=== PATIENT | female | born 1935 ===

== ENCOUNTER 2017-01-17 20:31 | Emergency (ER) | payer MEDICARE, OTHER ==
[2017-01-17 20:42] VITALS: BP 154/96
[2017-01-17 20:45] VITALS: BMI 23.0
--- NOTE | 2017-01-17 21:26 | ED PDOC ---
Arrival/HPI - General Historian: Patient, Other (daughter) - History of Present Illness Time/Duration: 4-6 hours Symptom Onset: Sudden Severity Level: 8 Activities at Onset: Light <Lila Larsen - Last Filed: 01/17/17 22:52> <Yasmin Suarez - Last Filed: 01/17/17 23:35> - General Chief Complaint: Trauma Time Seen by Provider: 01/17/17 20:52 - History of Present Illness Narrative History of Present Illness (Text): 01/17/17 21:25 81 yo F w h/o HTN, HLD, Parkinson's disease, hypothyroidism presents to ER, brought in by her daughter who is currently at bedside, s/p fall at home with L back and L knee trauma. Patient denies head trauma and LOC. Patient's daughter states the patient usually ambulates with a walker. The patient stood to grab a glass of water today by her bedside and "lost balance," striking her left mid back on a bureau and left knee on the ground. Patient admits to intermittent dizziness for months for which she is reportedly being worked up by her PMD. Patient admits to persistent left back and left knee pain. Denies CP, SOB, palpitations, abd pain, fevers, chills, n/v/d/c, rashes, edema. (Lila Larsen) Past Medical History - Provider Review Nursing Documentation Reviewed: Yes - Reproductive Menopause: Yes - Cardiac Hx Cardiac Disorders: Yes Hx Hypertension: Yes - Pulmonary Hx Respiratory Disorders: No Hx Sleep Apnea: Yes - Neurological Hx Neurological Disorder: Yes Hx Parkinson's Disease: Yes - HEENT Hx HEENT Disorder: No - Renal Hx Renal Disorder: No - Endocrine/Metabolic Hx Hypothyroidism: Yes - Hematological/Oncological Hx Blood Disorders: No Hx AIDS: No Hx Blood Transfusions: No Hx Blood Transfusion Reaction: No - Integumentary Hx Dermatological Disorder: No - Musculoskeletal/Rheumatological Hx Arthritis: Yes - Gastrointestinal Hx Gastrointestinal Disorders: Yes Hx Gastroesophageal Reflux: Yes (gastritis, esophageal hernia operation) - Genitourinary/Gynecological Hx Genitourinary Disorders: No - Psychiatric Hx Psychophysiologic Disorder: No Hx Substance Use: No - Surgical History Hx Section: Yes (x3) Hx Cholecystectomy: Yes Other/Comment: pacemaker. thyroid sx - Anesthesia Hx Anesthesia: Yes Hx Anesthesia Reactions: No Hx Malignant Hyperthermia: No <Lila Larsen - Last Filed: 01/17/17 22:52> Family/Social History - Physician Review Nursing Documentation Reviewed: Yes Family/Social History: Hypertension, CAD/RI Smoking Status: Former Smoker Hx Alcohol Use: No Hx Substance Use: No <Lila Larsen - Last Filed: 01/17/17 22:52> Allergies/Home Meds <Lila Larsen - Last Filed: 01/17/17 22:52> <Yasmin Suarez - Last Filed: 01/17/17 23:35> Allergies/Adverse Reactions: Allergies peanut Allergy (Verified 01/17/17 20:50) ITCHING zolpidem tartrate [From Ambien] Adverse Reaction (Verified 01/17/17 20:50) HALUCINATIONS PT DAUGHTER STATED THIS DURING INTERVEIW FOR ENDO coffee Allergy (Uncoded 01/17/17 20:50) ITCHING lettuce Allergy (Uncoded 01/17/17 20:50) ITCHING Home Medications: Home Meds Medication Instructions Recorded Confirmed Carbidopa/Levodopa [Sinemet 1 tab PO DAILY 06/06/16 11/15/16 10] Levothyroxine [Synthroid] 0 mcg PO DAILY 06/06/16 11/15/16 Loperamide HCl [Loperamide] 2 mg PO DAILY 06/06/16 11/15/16 Metoprolol Succinate [Toprol XL] 25 mg PO DAILY 06/06/16 11/15/16 Benzonatate [Tessalon Perle] 100 mg PO DAILY 11/15/16 11/15/16 Cholecalciferol (Vitamin D3) 2,000 units PO DAILY 11/15/16 11/15/16 [Vitamin D3] Levocetirizine Dihydrochloride 5 mg PO DAILY 11/15/16 11/15/16 [Xyzal] Pantoprazole [Protonix EC Tab] 40 mg PO DAILY 11/15/16 11/15/16 Rivaroxaban [Xarelto] 20 mg PO DAILY 11/15/16 11/15/16 Sucralfate [Carafate] 2 tsp PO DAILY 11/15/16 11/15/16 Review of Systems - Physician Review All systems were reviewed & negative as marked: Yes - Review of Systems Constitutional: absent: Fatigue, Fevers Eyes: absent: Vision Changes Respiratory: absent: SOB, Cough Cardiovascular: absent: Chest Pain, Palpitations, Edema, Calf Pain, VARGAS Gastrointestinal: absent: Abdominal Pain, Diarrhea, Nausea, Vomiting Genitourinary Female: absent: Dysuria, Frequency Musculoskeletal: Arthralgias (left knee), Back Pain (left midback) Skin: absent: Rash, Skin Lesions Neurological: Dizziness (intermittent). absent: Headache Endocrine: absent: Polyuria, Polydipsia Hemo/Lymphatic: absent: Easy Bleeding, Easy Bruising Psychiatric: absent: Anxiety, Depression <Lila Larsen - Last Filed: 01/17/17 22:52> Physical Exam Vital Signs Reviewed: Yes Temperature: Afebrile Blood Pressure: Hypertensive Pulse: Regular Respiratory Rate: Normal Appearance: Positive for: Non-Toxic, Uncomfortable Pain Distress: Mild Mental Status: Positive for: Alert and Oriented X 3 - Systems Exam Head: Present: Atraumatic, Normocephalic Pupils: Present: PERRL Extroacular Muscles: Present: EOMI Conjunctiva: Present: Normal Mouth: Present: Dry (slightly) Nose (External): Present: Atraumatic Nose (Internal): Present: Normal Inspection Neck: Present: Normal Range of Motion. No: Meningeal Signs, JVD Respiratory/Chest: Present: Clear to Auscultation, Good Air Exchange. No: Respiratory Distress, Accessory Muscle Use Cardiovascular: Present: Regular Rate and Rhythm, Normal S1, S2 Abdomen: Present: Normal Bowel Sounds. No: Tenderness, Distention, Peritoneal Signs Back: Present: Other (small left midback abrasion, TTP around the area). No: Midline Tenderness, Paraspinal Tenderness Upper Extremity: Present: Normal Inspection. No: Cyanosis, Edema Lower Extremity: Present: Normal Inspection, Tenderness (L knee, very small abrasion, no open wounds, mild TTP). No: Edema, CALF TENDERNESS Neurological: Present: GCS=15, CN II-XII Intact, Speech Normal Skin: Present: Warm, Dry Psychiatric: Present: Alert, Oriented x 3 <Lila Larsen - Last Filed: 01/17/17 22:52> Medical Decision Making <Lila Larsen - Last Filed: 01/17/17 22:52> <Yasmin Suarez - Last Filed: 01/17/17 23:35> ED Course and Treatment: 01/17/17 21:41 81 yo F w h/o HTN, HLD, Parkinson's disease s/p fall at home. CT thoracic spine , CT head, left rib series, L knee. (Lila Larsen) Patient seen and examined with resident. Repeat exam with no tenderness of the knee or swelling with FROM present. Came up with treatment and disposition plan with resident. 01/17/17 23:[address]: IMPRESSION: 1. No intracranial hemorrhage. 2. Nonspecific white matter changes. 3. Incidental/non-acute findings are described above. Thoracic Spine CT: FINDINGS: Vertebrae: No acute fracture. Mild wedging of lower thoracic vertebral bodies, chronic. Discs/spinal canal/neural foramina: Mild degenerative changes of spine. No significant spinal canal stenosis. Other bones/joints: Several chronic LEFT rib deformities. Soft tissues: Unremarkable. Lungs: Mild dependent atelectasis. Probable mild peripheral scarring within upper lobes, LEFT greater than RIGHT. Pleural space: Mild posterior pleural thickening. Mediastinum: Partial fluid distention of esophagus. Moderate-sized hiatal hernia. Gallbladder and bile ducts: Cholecystectomy. Kidneys and ureters: RIGHT renal cyst. Small calculus within LEFT kidney. Stomach and bowel: Colonic diverticula. Tubes, lines and devices: LEFT pacemaker. IMPRESSION: 1. No fracture. 2. Incidental/non-acute findings are described above. 01/17/17 23:30 XR: L 6th rib fx. 01/17/17 23:30 Patient reports improvement in pain. CT brain and t-spine with no acute findings. XR shows L rib fx. The fall was due to her chronic unsteadiness but no acute near syncopal concerns. Given condition and concern for falls, will avoid heavier narcotic medications and will d/c on tramadol and incentive spirometer to f/u pmd. (Yasmin Suarez) - RAD Interpretation Radiology Orders: 01/17/17 21:22 HEAD W/O CONTRAST [CT] Stat THORACIC SPINE W/O CONT [CT] Stat KNEE WITH PATELLA LEFT 3 VIEW [RAD] Stat 01/17/17 21:23 RIBS LEFT & PA CHEST [RAD] Stat - Medication Orders Current Medication Orders: Discontinued Medications Oxycodone/Acetaminophen (Percocet 5/325 Mg Tab) 1 tab PO STAT STA Stop: 01/17/17 21:47 Last Admin: 01/17/17 22:00 Dose: 1 tab Disposition/Present on Arrival - Present on Arrival Any Indicators Present on Arrival: No History of DVT/PE: No History of Uncontrolled Diabetes: No Urinary Catheter: No History of Decub. Ulcer: No History Surgical Site Infection Following: None - Disposition Have Diagnosis and Disposition been Completed?: Yes Disposition Time: 22:49 Patient Plan: Discharge <Lila Larsen - Last Filed: 01/17/17 22:52> - Present on Arrival Any Indicators Present on Arrival: No - Disposition Have Diagnosis and Disposition been Completed?: Yes Patient Plan: Discharge <Yasmin Suarez - Last Filed: 01/17/17 23:35> - Disposition Diagnosis: Rib fracture, Fall Disposition: HOME/ ROUTINE Patient Problems: Current Active Problems Problem Status Onset Fall Acute Rib fracture Acute Condition: GOOD Discharge Instructions (ExitCare): Rib Fracture (ED) Print Language: LAO Additional Instructions: Use the incentive spirometer as directed. Take the ultracet for pain as prescribed. Please followup with your primary care physician within 1-2 days. Return to the emergency department if any new concerning symptoms. Prescriptions: traMADol/Acetaminophen [Ultracet 325 MG-37.5 MG] 1 tab PO Q8H PRN #20 tab PRN Reason: Pain, Severe (8-10) Referrals: Amara Gaspar MD [Primary Care Provider] - Follow up with primary
[2017-01-17] MEDS ORDERED: Oxycodone/Acetaminophen 5/325 mg Tab PO STA (21:46)
--- NOTE | 2017-01-17 22:50 | CT ---
EXAM: CT Head Without Intravenous Contrast CLINICAL HISTORY: 81 years old, female; Injury or trauma; Fall; Initial encounter; Concussion / head injury TECHNIQUE: Axial computed tomography images of the head/brain without intravenous contrast. This CT exam was performed using one or more of the following dose reduction techniques: automated exposure control, adjustment of the mA and/or kV according to patient size, and/or use of iterative reconstruction technique. COMPARISON: No relevant prior studies available. FINDINGS: Brain: Moderate atrophy. No intracranial hemorrhage. No mass. Few scattered foci of decreased attenuation within periventricular/subcortical white matter. No edema. Ventricles: No hydrocephalus. Bones/joints: No acute fracture. Soft tissues: Unremarkable. Vasculature: Mild atherosclerotic disease of intracranial arteries. Sinuses: No acute sinusitis. Mastoid air cells: No mastoid effusion. Orbits: Unremarkable as visualized. IMPRESSION: 1. No intracranial hemorrhage. 2. Nonspecific white matter changes. 3. Incidental/non-acute findings are described above.
--- NOTE | 2017-01-17 22:58 | CT ---
EXAM: CT Thoracic Spine Without Intravenous Contrast CLINICAL HISTORY: 81 years old, female; Pain; Pain in thoracic spine; Additional info: Trauma TECHNIQUE: Axial computed tomography images of the thoracic spine without intravenous contrast. This CT exam was performed using one or more of the following dose reduction techniques: automated exposure control, adjustment of the mA and/or kV according to patient size, and/or use of iterative reconstruction technique. Coronal and sagittal reformatted images were created and reviewed. COMPARISON: No relevant prior studies available. FINDINGS: Vertebrae: No acute fracture. Mild wedging of lower thoracic vertebral bodies, chronic. Discs/spinal canal/neural foramina: Mild degenerative changes of spine. No significant spinal canal stenosis. Other bones/joints: Several chronic LEFT rib deformities. Soft tissues: Unremarkable. Lungs: Mild dependent atelectasis. Probable mild peripheral scarring within upper lobes, LEFT greater than RIGHT. Pleural space: Mild posterior pleural thickening. Mediastinum: Partial fluid distention of esophagus. Moderate-sized hiatal hernia. Gallbladder and bile ducts: Cholecystectomy. Kidneys and ureters: RIGHT renal cyst. Small calculus within LEFT kidney. Stomach and bowel: Colonic diverticula. Tubes, lines and devices: LEFT pacemaker. IMPRESSION: 1. No fracture. 2. Incidental/non-acute findings are described above.
[2017-01-18 00:12] VITALS: PULSE 90; RESP 16; TEMP 98.9; O2SAT 98
--- NOTE | 2017-01-18 07:31 | RAD ---
PROCEDURE: Radiographs of the Chest and Left Ribs. HISTORY: trauma COMPARISON: 01/03/2017. Chest x-ray TECHNIQUE: Frontal radiograph of the chest and multiple oblique radiographs of the left ribs were obtained. FINDINGS: LEFT RIBS: A post anterior left 6th rib fracture with minimal deformity - appears grossly subacute an another left apparently 8 rib lateral fracture is noted nondisplaced this may be subacute to chronic a pathological fracture here is not excluded. Visualization of the left normal spaced 7th rib is not seen. There is apparent osseous bridging developmental variant between this left 7th and 8th rib on the oblique view LUNGS: Clear. PLEURA: No pneumothorax or pleural fluid. CARDIOVASCULAR: Mild cardiomegaly - left ventricular enlargement apparent -no significant change. Dual lead pacemaker device in place Pulmonary vasculature appears within normal limits given the right shallow lung volumes OTHER FINDINGS: Right upper quadrant cholecystectomy clips IMPRESSION: Left rib fractures nondisplaced as detailed above. No pneumothorax
== END 2017-01-18 00:13 | disposition home or self-care (01) ==
LOC: ED 20:31
DX: S22.32XA Fracture of one rib, left side, initial encounter for closed fracture (principal); W18.39XA Other fall on same level, initial encounter; Y92.003 Bedroom of unspecified non-institutional (private) residence as the place of occurrence of the external cause; I10 Essential (primary) hypertension; G20 Parkinson's disease; Z87.891 Personal history of nicotine dependence

== ENCOUNTER 2018-04-30 14:07 | Emergency (ER) | payer MEDICARE, OTHER ==
[2018-04-30 14:56] VITALS: RESP 18; BMI 24.4
[2018-04-30] MEDS ORDERED: Sodium Chloride 0.9% 500 ML IV STA (15:25)
--- NOTE | 2018-04-30 15:47 | RAD ---
Date of service: 04/30/2018 HISTORY: dizziness COMPARISON: 12/19/2017. FINDINGS: LUNGS: The lungs are well inflated and clear. PLEURA: No significant pleural effusion identified, no pneumothorax apparent. CARDIOVASCULAR: The heart is normal in size. There is stable position of left-sided permanent pacing device. OSSEOUS STRUCTURES: There is stable deformity in the left sunshine thorax with old fracture deformities in the ribs. VISUALIZED UPPER ABDOMEN: Normal. OTHER FINDINGS: None. IMPRESSION: No active pulmonary disease.
--- NOTE | 2018-04-30 16:23 | CT ---
Date of service: 04/30/2018 PROCEDURE: CT HEAD WITHOUT CONTRAST. HISTORY: Dizziness COMPARISON: 01/17/2017. TECHNIQUE: Axial computed tomography images were obtained through the head/brain without intravenous contrast. Radiation dose: Total exam DLP = 828.09 mGy-cm. This CT exam was performed using one or more of the following dose reduction techniques: Automated exposure control, adjustment of the mA and/or kV according to patient size, and/or use of iterative reconstruction technique. FINDINGS: HEMORRHAGE: No intracranial hemorrhage. BRAIN: There are mild chronic microangiopathic changes. There is no mass, mass effect or abnormal extra-axial fluid collection. There is no territorial infarction. VENTRICLES: There is moderate age-related global parenchymal volume loss and proportionate enlargement of the ventricles and cortical sulci. CALVARIUM: The skull base and calvarium are normal. PARANASAL SINUSES: Predominantly clear. MASTOID AIR CELLS: Predominantly clear. OTHER FINDINGS: None. IMPRESSION: No acute intracranial abnormality. Mild chronic microangiopathic changes and moderate age-related global parenchymal volume loss.
--- NOTE | 2018-04-30 16:48 | ED PDOC ---
Arrival/HPI - General Chief Complaint: Dizziness/Lightheaded Time Seen by Provider: 04/30/18 14:53 Historian: Patient - History of Present Illness Narrative History of Present Illness (Text): 04/30/18 16:43 82 year old female, whose past medical history includes afib on Xeralto, CKD, sleep apnea, pacemaker, anemia and hypertension, who presents to the Emergency Department complaining of dizziness described as vertigo worse with head movement, decreased appetite, and general weakness x 1 week. Patient notes a near syncopal episode 3 days ago. Family believes it could be due to high blood pressure. Patient visited PMD on 4 days ago, bloodwork results were normal. Patient denies any fever, chills, chest pain, shortness of breath, nausea, vomiting, diarrhea, urinary symptoms, back pain, neck pain, headache, or any other complaints. Of note, as per daughter the patient has been taking tylenol PM 2 tabs BID for her joint pain for the past several days. pmd: [employer] Hand: Olga Cardio: [place] Time/Duration: 1 week Symptom Onset: Gradual Symptom Course: Unchanged Activities at Onset: Light Context: Home Past Medical History - Provider Review Nursing Documentation Reviewed: Yes - Infectious Disease Hx of Infectious Diseases: None - Cardiac Hx Cardiac Disorders: Yes Hx Atrial Fibrillation: Yes Hx Pacemaker: Yes - Pulmonary Hx Respiratory Disorders: Yes Hx Sleep Apnea: Yes - Neurological Hx Neurological Disorder: Yes Hx Parkinson's Disease: Yes - HEENT Hx HEENT Disorder: No - Renal Hx Renal Disorder: No - Endocrine/Metabolic Hx Endocrine Disorders: Yes Hx Hyperthyroidism: Yes - Hematological/Oncological Hx Blood Disorders: Yes Hx Anemia: Yes - Integumentary Hx Dermatological Disorder: No - Musculoskeletal/Rheumatological Hx Musculoskeletal Disorders: No - Gastrointestinal Hx Gastrointestinal Disorders: Yes - Genitourinary/Gynecological Hx Genitourinary Disorders: No - Psychiatric Hx Psychophysiologic Disorder: No Hx Substance Use: No - Surgical History Other/Comment: pacemaker. thyroid sx - Anesthesia Hx Anesthesia Reactions: No Family/Social History - Physician Review Nursing Documentation Reviewed: Yes Family/Social History: Unknown Family HX Smoking Status: Former Smoker Hx Alcohol Use: No Hx Substance Use: No Allergies/Home Meds Allergies/Adverse Reactions: Allergies peanut Allergy (Verified 04/30/18 14:51) ITCHING zolpidem [From Ambien] Allergy (Verified 04/30/18 14:51) DIZZINESS zolpidem tartrate [From Ambien] Adverse Reaction (Verified 04/30/18 14:51) HALUCINATIONS PT DAUGHTER STATED THIS DURING INTERVEIW FOR ENDO coffee Allergy (Uncoded 04/30/18 14:51) ITCHING lettuce Allergy (Uncoded 04/30/18 14:51) ITCHING Home Medications: Home Meds Medication Instructions Recorded Confirmed Loperamide HCl [Loperamide] 2 mg PO DAILY 06/06/16 04/30/18 Metoprolol Succinate XL [Toprol XL] 25 mg PO DAILY 06/06/16 04/30/18 Cholecalciferol (Vitamin D3) 2,000 units PO DAILY 11/15/16 04/30/18 [Vitamin D3] Pantoprazole [Protonix EC Tab] 40 mg PO DAILY 11/15/16 04/30/18 Levothyroxine [Synthroid] 75 mcg PO DAILY 12/19/17 04/30/18 ALPRAZolam [Xanax] 0.25 mg PO HS 04/30/18 04/30/18 Carbidopa/Levodopa 10 - 100 mg PO BID 04/30/18 04/30/18 [Carbidopa-Levodopa 10-100 Tab] Rivaroxaban [Xarelto] 20 mg PO DAILY 04/30/18 04/30/18 Review of Systems - Physician Review All systems were reviewed & negative as marked: Yes - Review of Systems Constitutional: Fatigue Eyes: Normal ENT: Normal Respiratory: Normal. absent: SOB, Cough Cardiovascular: Normal. absent: Chest Pain Gastrointestinal: Normal. absent: Abdominal Pain, Diarrhea, Nausea Genitourinary Female: Normal. absent: Dysuria, Frequency Musculoskeletal: Normal. absent: Back Pain, Neck Pain Skin: Normal. absent: Rash Neurological: Dizziness Endocrine: Normal Hemo/Lymphatic: Normal Psychiatric: Normal Physical Exam Vital Signs Reviewed: Yes Vital Signs Temp Pulse Resp BP Pulse Ox 04/30/18 16:41 60 18 128/71 98 04/30/18 14:51 97.8 F 68 18 118/63 99 Temperature: Afebrile Blood Pressure: Normal Pulse: Regular Respiratory Rate: Normal Appearance: Positive for: Well-Appearing, Non-Toxic, Comfortable Pain Distress: None Mental Status: Positive for: Alert and Oriented X 3 - Systems Exam Head: Present: Atraumatic, Normocephalic Pupils: Present: PERRL Extroacular Muscles: Present: EOMI, Other (horizontal nystagmus) Conjunctiva: Present: Normal Mouth: Present: Dry Neck: Present: Normal Range of Motion Respiratory/Chest: Present: Clear to Auscultation, Good Air Exchange. No: Respiratory Distress, Accessory Muscle Use Cardiovascular: Present: Regular Rate and Rhythm, Normal S1, S2. No: Murmurs Abdomen: No: Tenderness, Distention, Peritoneal Signs Back: Present: Normal Inspection Upper Extremity: Present: Normal Inspection. No: Cyanosis, Edema Lower Extremity: Present: Normal Inspection. No: Edema Neurological: Present: GCS=15, CN II-XII Intact, Speech Normal. No: Gait Normal (Gait unsteady) Skin: Present: Warm, Dry, Normal Color. No: Rashes Psychiatric: Present: Alert, Oriented x 3, Normal Insight, Normal Concentration Medical Decision Making ED Course and Treatment: 04/30/18 16:52 Impression: 82 year old female presents to the Emergency Department complaining of dizziness and general weakness x 1 week. Plan: -- EKG -- Labs -- Cardiac Enzymes -- Antivert -- Urine Culture -- UA -- CT Chest -- CXR -- Reassess and disposition Progress Notes: 04/30/18 17:17 CT head : IMPRESSION: No acute intracranial abnormality. Mild chronic microangiopathic changes and moderate age-related global parenchymal volume loss. CXR : IMPRESSION: No active pulmonary disease. EKG : electronic atrial pacemaker at 60 bpm, +LAD, no acute ST changes, as read by PA. Lab results reviewed : H/H wnl, Na 128 (appears chronic and not new Na 127-132), trop (-). Urine still pending. 04/30/18 17:54 VS : P 60 BP 128/71 98%RA On re-evaluation, patient reports improvement of symptoms, denies any dizziness at this time, only generalized weakness. On exam, patient remains AAOx3, in no acute distress. Repeat neuro exam shows no focal findings. Patient able to get up and out of bed and ambulate to the bathroom with minimal assistance, her gait is steady. Diagnostic results d/w the patient in great detail. Diagnosis of vertigo, hyponatremia, and UTI d/w the patient. Based on history, exam and diagnostic results, plan will be for outpatient follow up. Patient instructed to follow-up with pmd in 1-2 days without fail. Advised to take medication as prescribed. Return to the emergency room at any time for any new or worsening symptoms. Patient states she fully agrees with and understands discharge instructions. States that she agrees with the plan and disposition. Verbalized and repeated discharge instructions and plan. I have given the patient opportunity to ask any additional questions. - Lab Interpretations Lab Results: 04/30/18 16:37 04/30/18 16:37 Lab Results 04/30/18 18:01: Urine Color Yellow, Urine Appearance Sl cloudy, Urine pH 7.5, Ur Specific [place] 1.010, Urine Protein Negative, Urine Glucose (UA) Negative, Urine Ketones Negative, Urine Blood Trace-lysed H, Urine Nitrate Negative, Urine Bilirubin Negative, Urine Urobilinogen 0.2, Ur Leukocyte Esterase Small H , Urine RBC 2 - 5, Urine WBC 1 - 3, Ur Epithelial Cells 0 - 2 04/30/18 16:37: Sodium 128 L, Potassium 4.7, Chloride 93 L, Carbon Dioxide 25, Anion Gap 15, BUN 17, Creatinine 1.1, Est GFR ( Amer) 57, Est GFR (Non- Af Amer) 47, Random Glucose 114 H, Calcium 8.0 L, Magnesium 1.7, Total Bilirubin 0.5, AST 32, ALT 50, Alkaline Phosphatase 76, Lactate Dehydrogenase 509, Total Creatine Kinase 43, Troponin I < 0.01 D, Total Protein 6.9, Albumin 4.0, Globulin 2.9, Albumin/Globulin Ratio 1.4 04/30/18 16:37: WBC 6.5, RBC 3.95, Hgb 12.7, Hct 36.5, MCV 92.4 D, MCH 32.2, MCHC 34.8, RDW 14.5, Plt Count 195, MPV 9.6, Gran % 71.7 H, Lymph % (Auto) 21.4 L, [place] % (Auto) 5.9, Eos % (Auto) 0.8 L, Baso % (Auto) 0.2, Gran # 4.63, Lymph # (Auto) 1.4, [place] # (Auto) 0.4, Eos # (Auto) 0.1, Baso # (Auto) 0.01 - RAD Interpretation Radiology Orders: 04/30/18 15:21 CHEST PORTABLE [RAD] Stat 04/30/18 15:24 HEAD W/O CONTRAST [CT] Stat - Medication Orders Current Medication Orders: Discontinued Medications Sodium Chloride (Sodium Chloride 0.9%) 500 mls @ 500 mls/hr IV .Q1H STA Stop: 04/30/18 16:24 Last Admin: 04/30/18 16:40 Dose: 500 mls/hr eMAR Start Stop Document 04/30/18 16:40 HI (Rec: 04/30/18 16:40 [place] [id number]) Intravenous Solution Start Date 04/30/18 Start Time 16:40 Ceftriaxone Sodium (Rocephin 1 Gram Ivpb) 1 gm in 100 mls @ 200 mls/hr IVPB STAT STA PRN Reason: Protocol Stop: 04/30/18 19:02 Last Admin: 04/30/18 19:06 Dose: 200 mls/hr eMAR Start Stop Document 04/30/18 19:06 HI (Rec: 04/30/18 19:06 [id number] Intravenous Solution Start Date 04/30/18 Start Time 19:06 Meclizine HCl (Antivert) 25 mg PO STAT STA Stop: 04/30/18 15:25 Last Admin: 04/30/18 16:40 Dose: 25 mg Ondansetron HCl (Zofran Inj) 4 mg IVP STAT STA Stop: 04/30/18 15:25 Last Admin: 04/30/18 16:40 Dose: 4 mg IVP Administration Document 04/30/18 16:40 [place] (Rec: 04/30/18 16:40 [id number] Charges for Administration # of IVP Administrations 1 - PA / GRANULIZING MACHINE OPERATOR / Resident Statement MD/DO has reviewed & agrees with the documentation as recorded. - Scribe Statement The provider has reviewed the documentation as recorded by the Scribe Usha Velasco All medical record entries made by the Scribe were at my direction and personally dictated by me. I have reviewed the chart and agree that the record accurately reflects my personal performance of the history, physical exam, medical decision making, and the department course for this patient. I have also personally directed, reviewed, and agree with the discharge instructions and disposition. Disposition/Present on Arrival - Present on Arrival Any Indicators Present on Arrival: No History of DVT/PE: No History of Uncontrolled Diabetes: No Urinary Catheter: No History of Decub. Ulcer: No History Surgical Site Infection Following: None - Disposition Have Diagnosis and Disposition been Completed?: Yes Diagnosis: Vertigo, UTI (urinary tract infection), Hyponatremia Disposition: HOME/ ROUTINE Disposition Time: 19:00 Patient Plan: Discharge Patient Problems: Current Active Problems Problem Status Onset Hyponatremia Acute UTI (urinary tract infection) Acute Vertigo Acute Condition: STABLE Discharge Instructions (ExitCare): Vertigo (a Type of Dizziness), Urinary Tract Infections in Adults, Hyponatremia (DC) Additional Instructions: Thank you for letting us take care of you today. You were treated for vertigo, UTI, hyponatremia. The emergency medical care you received today was directed at your acute symptoms. If you were prescribed any medication, please fill it and take as directed. It may take several days for your symptoms to resolve. Return to the Emergency Department if your symptoms worsen, do not improve, or if you have any other problems. Please contact your doctor in 2 days for re-evaluation and follow up. Bring any paperwork you were given at discharge with you along with any medications you are taking to your follow up visit. Our treatment cannot replace ongoing medical care by a primary care provider (PCP) outside of the emergency department. Thank you for allowing the [facility] team to be part of your care today. If you had an X-Ray or CT scan: A Radiologist will review the ED reading if any change in treatment is needed we will contact you. If you had a urine culture: It will take several days for the results, if any change in treatment is needed we will contact you. Prescriptions: Cephalexin [Keflex] 500 mg PO TID #21 capsule Meclizine [Meclizine*] 25 mg PO Q6 PRN #20 tab PRN Reason: Dizziness Ondansetron ODT [Zofran ODT] 4 mg PO DAILY PRN #20 odt PRN Reason: Nausea/Vomiting Referrals: Amara Gaspar MD [Primary Care Provider] - Follow up with primary Forms: [employer] ([place])
[2018-04-30 16:55] LABS: BASO # 0.01 K/mm3 (0.0-2.0); BASO % 0.2 % (0.0-3.0); EOS # 0.1 (0.0-0.7); EOS % 0.8 % (1.5-5.0); GRAN # 4.63 (1.4-6.5); GRAN % 71.7 % (50.0-68.0); HEMOGLOBIN 12.7 g/dL (12.0-16.0); LYMPH # 1.4 (1.2-3.4); LYMPH % 21.4 % (22.0-35.0); MEAN CELL VOLUME 92.4 fl (80.0-105.0); MEAN CORPUSCULAR HEMOGLOBIN 32.2 pg (25.0-35.0); MEAN CORPUSCULAR HGB CONC 34.8 g/dl (31.0-37.0); MEAN PLATELET VOLUME 9.6 fl (7.0-11.0); MONO # 0.4 (0.1-0.6); MONO % 5.9 % (1.0-6.0); RBC 3.95 10^6/uL (3.5-6.1); RED CELL DISTRIBUTION WIDTH 14.5 % (11.5-14.5); WHITE BLOOD COUNT 6.5 10^3/ul (4.5-11.0)
[2018-04-30 17:04] LABS: ALB/GLOB RATIO 1.4 (1.1-1.8); ALT/SGPT 50 U/L (7-56); AST/SGOT 32 U/L (14-36); BLOOD UREA NITROGEN 17 mg/dL (7-21); GFR AFRICAN-AMERICAN 57; GFR NON-AFRICAN AMERICAN 47
[2018-04-30 17:14] LABS: TROPONIN I < 0.01 ng/mL
[2018-04-30 18:15] LABS: PH,URINE 7.5 (4.7-8.0); URINE BILIRUBIN NEGATIVE (NEGATIVE); URINE BLOOD TRACE-LYSED (NEGATIVE); URINE GLUCOSE (UA) NEGATIVE (NEGATIVE); URINE LEUKOCYTE ESTERASE SMALL Leu/uL (NEGATIVE); URINE PROTEIN NEGATIVE mg/dL (<30 mg/dL); URINE UROBILINOGEN 0.2 E.U./dL (<1 E.U./dL)
[2018-04-30 18:17] LABS: URINE APPEARANCE SL CLOUDY (CLEAR); URINE COLOR YELLOW (YELLOW)
[2018-04-30 18:19] LABS: URINE EPITHELIAL CELLS 0 - 2 /hpf (0-5)
[2018-04-30] MEDS ORDERED: cefTRIAXone 1,000 MG in PED IV SYRINGE 1 SYR IVPB STA (18:31)
[2018-04-30] MEDS ORDERED: cefTRIAXone 1 gm 1 GM/100 ML BAG IVPB STA (18:33)
[2018-04-30 20:09] VITALS: BP 141/91; PULSE 70; TEMP 97.9; O2SAT 100
--- NOTE | 2018-04-30 22:30 | CARD ---
APPROVED REPORT Date of service: 04/30/2018 EKG Measurement Heart [id number] <Conclusion> Poor data quality, interpretation may be adversely affected Electronic atrial pacemaker Left axis deviation Septal infarct, age undetermined Possible Lateral infarct, age undetermined Abnormal ECG
== END 2018-04-30 20:08 | disposition home or self-care (01) ==
LOC: ED 14:07
DX: R42 Dizziness and giddiness (principal); E87.1 Hypo-osmolality and hyponatremia; N39.0 Urinary tract infection, site not specified; I48.91 Unspecified atrial fibrillation; I12.9 Hypertensive chronic kidney disease with stage 1 through stage 4 chronic kidney disease, or unspecified chronic kidney disease; N18.9 Chronic kidney disease, unspecified; G20 Parkinson's disease; Z87.891 Personal history of nicotine dependence
CPT/HCPCS: 70450; 71045; 80053; 81001; 82550; 83615; 83735; 84484; 85025; 87086; 93005; 96374; 99285; J0696; J2405; J7030

== ENCOUNTER 2018-08-02 14:24 | Emergency (ER) | payer MEDICARE, OTHER ==
[2018-08-02 14:24] VITALS: BMI 23.0
--- NOTE | 2018-08-02 16:07 | ED PDOC ---
Arrival/HPI <Salbador Brooks - Last Filed: 08/02/18 20:00> - General Historian: Patient, Family (taylor, daughter) - History of Present Illness Narrative History of Present Illness (Text): This is an 83 year old mohawk speaking female with PMH of esophageal stricture, Afib, DVT, CKD, sleep apnea, CHF with PM, hypertension, arthritis who presents with multiple complaints. Pt's daughter, taylor, helped translate. Pt is a poor historian. She is complaining of left sided hip pain for the past 3 days, with is worse with walking better with rest and nonradiating. Pt is also complaining of chronic diffuse abdominal discomfort worsened over the past 3 days, associated with nausea and vomiting. Pt states that she is able to eat and drink at times, and that the vomitus only contains food material without blood or bile. Pt also reports increased urinary frequency for the past 8 days with urgency. No dysuria, hematuria, vaginal complaints. Pt denies fever, chills, so b, diarrhea, hematochezia, melena, dizziness, focal weakness, blurry vision. Denies recent travel, car rides longer than 4 hours, airplane rides. Last bowel movement was 2 days ago, normal. Pt is passing gas. PMD: Christal Gaspar (last seen 6 months ago) Cardiology: Efrain Rudolph (last seen 1 week ago for chest discomfort, and was scheduled for a stress test today) GI: Fallon (last seen 8 months ago) Nephro: Hajal PMH: esophageal stricture, Afib, DVT, CKD, sleep apnea, CHF with PM, hypertensi on, arthritis PSH: PM 2 years ago, thyroid surgery, abdominal hernia surgery, cholecystectomy Meds: see MAR Allx: see MAR Social hx: Lives with in [place]. Denies etoh, former smoker, denies d rug use. Time/Duration: < week Symptom Onset: Gradual Symptom Course: Worsening Quality: Other (abdominal discomfort) Associated Symptoms (Text): 08/02/18 20:19 nausea and vomiting <Chino Quintero - Last Filed: 08/02/18 20:19> - General Chief Complaint: GI Problem Time Seen by Provider: 08/02/18 14:51 Past Medical History - Provider Review Nursing Documentation Reviewed: Yes - Infectious Disease Hx of Infectious Diseases: None - Cardiac Hx Cardiac Disorders: Yes Hx Atrial Fibrillation: Yes Hx Pacemaker: Yes - Pulmonary Hx Respiratory Disorders: No - Neurological Hx Neurological Disorder: Yes Hx Parkinson's Disease: Yes - HEENT Hx HEENT Disorder: No - Renal Hx Renal Disorder: No - Endocrine/Metabolic Hx Endocrine Disorders: Yes Hx Hyperthyroidism: Yes - Hematological/Oncological Hx Blood Disorders: No - Integumentary Hx Dermatological Disorder: No - Musculoskeletal/Rheumatological Hx Musculoskeletal Disorders: Yes - Gastrointestinal Hx Gastrointestinal Disorders: Yes - Genitourinary/Gynecological Hx Genitourinary Disorders: No - Psychiatric Hx Psychophysiologic Disorder: No Hx Substance Use: No - Surgical History Other/Comment: pacemaker. thyroid sx - Anesthesia Hx Anesthesia Reactions: No <Chino Quintero - Last Filed: 08/02/18 20:19> Family/Social History - Physician Review Nursing Documentation Reviewed: Yes Family/Social History: Unknown Family HX Smoking Status: Former Smoker Hx Alcohol Use: No Hx Substance Use: No <Chino Quintero - Last Filed: 08/02/18 20:19> Allergies/Home Meds <Salbador Brooks - Last Filed: 08/02/18 20:00> <Chino Quintero - Last Filed: 08/02/18 20:19> Allergies/Adverse Reactions: Allergies peanut Allergy (Verified 08/02/18 14:31) ITCHING zolpidem [From Ambien] Allergy (Verified 08/02/18 14:31) DIZZINESS zolpidem tartrate [From Ambien] Adverse Reaction (Verified 08/02/18 14:31) HALUCINATIONS PT DAUGHTER STATED THIS DURING INTERVEIW FOR ENDO coffee Allergy (Uncoded 08/02/18 14:31) ITCHING lettuce Allergy (Uncoded 08/02/18 14:31) ITCHING Home Medications: Home Meds Medication Instructions Recorded Confirmed Loperamide HCl [Loperamide] 2 mg PO DAILY 06/06/16 08/02/18 Metoprolol Succinate XL [Toprol XL] 25 mg PO DAILY 06/06/16 08/02/18 Cholecalciferol (Vitamin D3) 2,000 units PO DAILY 11/15/16 08/02/18 [Vitamin D3] Pantoprazole [Protonix EC Tab] 40 mg PO DAILY 11/15/16 08/02/18 Levothyroxine [Synthroid] 75 mcg PO DAILY 12/19/17 08/02/18 Carbidopa/Levodopa 10 - 100 mg PO BID 04/30/18 08/02/18 [Carbidopa-Levodopa 10-100 Tab] Rivaroxaban [Xarelto] 20 mg PO DAILY 04/30/18 08/02/18 Review of Systems - Review of Systems Constitutional: Other (weakness chronic) Eyes: Normal Respiratory: Normal Cardiovascular: Chest Pain (chest discomfort), Palpitations Gastrointestinal: Abdominal Pain (diffuse abdominal discomfort), Nausea, Vomiti ng. absent: Diarrhea, Hematochezia, Hematemesis Genitourinary Female: Frequency Musculoskeletal: Arthralgias Neurological: absent: Normal Endocrine: Normal Psychiatric: Normal <Chino Quintero - Last Filed: 08/02/18 20:19> Physical Exam Vital Signs Temp Pulse Resp BP Pulse Ox 08/02/18 14:33 97.7 F 62 16 126/77 96 <Salbador Brooks - Last Filed: 08/02/18 20:00> Vital Signs Reviewed: Yes Vital Signs Temp Pulse Resp BP Pulse Ox 08/02/18 14:33 97.7 F 62 16 126/77 96 Temperature: Afebrile Blood Pressure: Normal Pulse: Regular Respiratory Rate: Normal Appearance: Positive for: Well-Appearing, Non-Toxic Pain Distress: None Mental Status: Positive for: Alert and Oriented X 3 - Systems Exam Head: Present: Atraumatic, Normocephalic Mouth: Present: Dry Respiratory/Chest: Present: Clear to Auscultation, Other ((+) left upper chest wall PPM). No: Respiratory Distress, Accessory Muscle Use, Rales, Rhonchi, Tachypneic Cardiovascular: Present: Regular Rate and Rhythm Abdomen: Present: Tenderness (mild tenderness to the epigastric region and RUQ; minimal diffuse abdominal "discomfort" on palpation), Normal Bowel Sounds, Scars. No: Distention, Peritoneal Signs, Rebound, Guarding, McBurney's Point Tender, Rovsing's Sign Present Back: Present: Normal Inspection, Paraspinal Tenderness (mild left lumbar paravertbral tenderness). No: CVA Tenderness Upper Extremity: Present: Normal Inspection, NORMAL PULSES. No: Edema Lower Extremity: Present: Normal Inspection, NORMAL PULSES, Normal ROM, Tenderness (mild point tenderness to the proximal anterior byrd; point tenderness to the left lateral hip). No: CALF TENDERNESS, Santiago's Sign, Swelling, Erythema, Deformity Neurological: Present: GCS=15 Skin: Present: Warm, Dry Psychiatric: Present: Alert <Chino Quintero - Last Filed: 08/02/18 20:19> Medical Decision Making ED Course and Treatment: 08/02/18 16:54 Impression: 83 year old female who presents to the emergency department with multiple complaints, hip pain, abdominal pain, vomiting, and increased urinary frequency. Patient Seen with Resident: In agreement with resident note which contains more details about the patient. Patient seen and evaluated with resident. Came up with plan and treatment together. - Lab Interpretations Lab Results: 08/02/18 16:20 Lab Results 08/02/18 16:20: WBC 7.5, RBC 3.71, Hgb 12.2, Hct 36.5, MCV 98.4 D, MCH 32.9, MCHC 33.4, RDW 12.2, Plt Count 205, MPV 10.2, Gran % 79.1 H, Lymph % (Auto) 11.4 L, [place] % (Auto) 8.3 H, Eos % (Auto) 1.1 L, Baso % (Auto) 0.1, Gran # 5.92, Lymph # (Auto) 0.9 L, [place] # (Auto) 0.6, Eos # (Auto) 0.1, Baso # (Auto) 0.01 - RAD Interpretation Narrative RAD Interpretations (Text): 08/02/18 20:00 CT of Abdomen and pelvis reviewed, shows: FINDINGS: LUNG BASES: The lung bases appear clear. No pleural effusions are seen. Large hiatal hernia noted. Cardiac pacing wires present. LIVER: Unremarkable. GALLBLADDER AND BILE DUCTS: Gallbladder has been surgically removed. PANCREAS: Unremarkable. SPLEEN: Unremarkable. ADRENAL GLANDS: Unremarkable. KIDNEYS, URETERS, AND BLADDER: Cortical atrophy both kidneys. No mass or obstruction.. STOMACH AND BOWEL: Unremarkable appearance of the stomach and bowel. No evidence of bowel obstruction. No evidence suggesting enteritis or colitis. Extensive diverticular changes sigmoid and descending colon. APPENDIX: No evidence of acute appendicitis on CT examination. PERITONEUM: No free fluid. No free air. LYMPH NODES: No lymphadenopathy is evident. VASCULATURE: No evidence of abdominal aortic aneurysm. BONES: No aggressive appearing osseous lesion. No acute osseous pathology evident. Dextroscoliosis lumbar spine with grade 1 anterolisthesis L4-L5 level. IMPRESSION: Extensive diverticular changes sigmoid and descending colon. Status post cholecystectomy. Large hiatal hernia. Cortical atrophy both kidneys. Dextroscoliosis lumbar spine with grade 1 anterolisthesis L4-5 level. Electronically signed on Aug 02, 2018 7:46:02 PM EST by: Kamari Dunlap M.D., Certified by [facility], Diagnostic Radiology Radiology Orders: 08/02/18 15:44 CHEST PORTABLE [RAD] Stat 08/02/18 15:46 FEMUR 1 VIEW LT [RAD] Stat HIP MIN 2V W/ PELVIS LT [RAD] Stat TIBIA FIBULA LEFT [RAD] Stat 08/02/18 16:32 GALLBLADDER & PANCREAS [US] Stat - EKG Interpretation EKG Interpretation (Text): 08/02/18 17:03 16:28: electronic atrial pacemaker at 61 bpm, baseline artifact, nonspecific intraventricular onduction delay, nonspecific t wave abn: findings unchanged from prior ekg Interpreted by ED Physician: Yes - Medication Orders Current Medication Orders: Discontinued Medications Morphine Sulfate (Morphine) 2 mg IVP STAT STA Stop: 08/02/18 16:32 Ondansetron HCl (Zofran Inj) 2 mg IVP STAT STA Stop: 08/02/18 15:55 Last Admin: 08/02/18 16:18 Dose: 2 mg IVP Administration Document 08/02/18 16:18 CAST (Rec: 08/02/18 16:18 [id number]) Charges for Administration # of IVP Administrations 1 <Salbador Brooks - Last Filed: 08/02/18 20:00> ED Course and Treatment: 08/02/18 16:12 CBC, CMP, Lipase, troponin , EKG, Chest X-ray, liver and pancreas US, left hip/pelv xray, left tib-fib x-ray, left fibular xray Zofran 4 mg IVP for nausea. Lidoderm patch and Tylenol for pain. Abdominal CT without IV or PO contrast. 08/02/18 19:57 On re-evaluation, pt reports that her hip pain has resolved. Pt was ambulating without difficulty to the bathroom. Pt has not had any vomiting or nausea in the ED since evaluation. Pt reports abdominal pain has resolved. Pt has an orthopedic physician with whom she follows up with, as well as a ne phrologist, dentist/owner and primary care physician. Pt and family instructed to follow up with specialists and PMD. Return to nearest ED if symptoms worsen. Pt and family understand, and agree with discharge plan. Re-evaluation Time: 19:00 Reassessment Condition: Improved - Lab Interpretations Interpretation: No sign. chg./baseline - RAD Interpretation Radiology Orders: 08/02/18 15:44 CHEST PORTABLE [RAD] Stat 08/02/18 15:46 FEMUR 1 VIEW LT [RAD] Stat HIP MIN 2V W/ PELVIS LT [RAD] Stat TIBIA FIBULA LEFT [RAD] Stat 08/02/18 15:51 ABD & PELVIS IV CONTRAST ONLY [CT] Stat - Medication Orders Current Medication Orders: Discontinued Medications Ondansetron HCl (Zofran Inj) 2 mg IVP STAT STA Stop: 08/02/18 15:55 <Chino Quintero - Last Filed: 08/02/18 20:19> - Scribe Statement The provider has reviewed the documentation as recorded by the David Mello Provider Scribe Attestation: All medical record entries made by the David were at my direction and personally dictated by me. I have reviewed the chart and agree that the record accurately reflects my personal performance of the history, physical exam, medical decision making, and the department course for this patient. I have also personally directed, reviewed, and agree with the discharge instructions and disposition. <Salbador Brooks - Last Filed: 08/02/18 20:00> Disposition/Present on Arrival <Salbador Brooks - Last Filed: 08/02/18 20:00> - Present on Arrival Any Indicators Present on Arrival: No History of DVT/PE: No History of Uncontrolled Diabetes: No Urinary Catheter: No History of Decub. Ulcer: No History Surgical Site Infection Following: None - Disposition Have Diagnosis and Disposition been Completed?: Yes Disposition Time: 19:56 Patient Plan: Discharge <Chino Quintero - Last Filed: 08/02/18 20:19> - Disposition Diagnosis: Abdominal pain, Nausea & vomiting, Diverticula of colon, Hip pain, Osteoarthritis Disposition: HOME/ ROUTINE Patient Problems: Current Active Problems Problem Status Onset Abdominal pain Acute Diverticula of colon Acute Hip pain Acute Nausea & vomiting Acute Osteoarthritis Acute Condition: STABLE Discharge Instructions (ExitCare): Osteoarthritis (DC), Diverticulosis (DC), Nausea and Vomiting, Adult (DC), Hip Pain (DC) Print Language: CROATIAN Referrals: Amara Gaspar MD [Primary Care Provider] - Follow up with primary Forms: [employer] (Belarusian)
[2018-08-02] MEDS ORDERED: Morphine 2 mg/ml ISec IVP STA (16:31)
[2018-08-02 16:39] LABS: BASO # 0.01 K/mm3 (0.0-2.0); BASO % 0.1 % (0.0-3.0); EOS # 0.1 (0.0-0.7); EOS % 1.1 % (1.5-5.0); GRAN # 5.92 (1.4-6.5); GRAN % 79.1 % (50.0-68.0); HEMOGLOBIN 12.2 g/dL (12.0-16.0); LYMPH # 0.9 (1.2-3.4); LYMPH % 11.4 % (22.0-35.0); MEAN CELL VOLUME 98.4 fl (80.0-105.0); MEAN CORPUSCULAR HEMOGLOBIN 32.9 pg (25.0-35.0); MEAN CORPUSCULAR HGB CONC 33.4 g/dl (31.0-37.0); MEAN PLATELET VOLUME 10.2 fl (7.0-11.0); MONO # 0.6 (0.1-0.6); MONO % 8.3 % (1.0-6.0); RBC 3.71 10^6/uL (3.5-6.1); RED CELL DISTRIBUTION WIDTH 12.2 % (11.5-14.5); WHITE BLOOD COUNT 7.5 10^3/uL (4.5-11.0)
[2018-08-02 17:00] LABS: ALB/GLOB RATIO 1.3 (1.1-1.8)
[2018-08-02 17:11] LABS: TROPONIN I < 0.01 ng/mL
[2018-08-02 17:12] LABS: ALBUMIN 3.7 g/dL (3.0-4.8); ALT/SGPT 57 U/L (7-56); AST/SGOT 32 U/L (14-36); BLOOD UREA NITROGEN 22 mg/dL (7-21); CALCIUM 8.3 mg/dL (8.4-10.5); GFR NON-AFRICAN AMERICAN 36; LIPASE 50 U/L (23-300)
[2018-08-02] MEDS ORDERED: Lidocaine 5% Patch TD STA (17:14)
[2018-08-02 17:31] VITALS: PULSE 67; RESP 18; TEMP 97.9
[2018-08-02 19:09] LABS: URINE BILIRUBIN NEGATIVE (NEGATIVE); URINE BLOOD NEGATIVE (NEGATIVE); URINE GLUCOSE (UA) NEGATIVE (NEGATIVE); URINE LEUKOCYTE ESTERASE SMALL Leu/uL (NEGATIVE); URINE PROTEIN NEGATIVE mg/dL (<30 mg/dL); URINE UROBILINOGEN 0.2 E.U./dL (<1 E.U./dL)
[2018-08-02 19:16] LABS: URINE APPEARANCE CLEAR (CLEAR); URINE COLOR LIGHT YELLOW (YELLOW)
[2018-08-02 19:30] LABS: URINE RBC 0 - 2 /hpf (0-2)
[2018-08-02 19:31] LABS: URINE BACTERIA FEW (NEG)
[2018-08-02 20:27] VITALS: BP 128/86; O2SAT 100
--- NOTE | 2018-08-03 10:15 | CARD ---
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 Anterolateral infarct, age Old.
--- NOTE | 2018-08-03 10:32 | RAD ---
PROCEDURE: Left Hip X-ray Radiographs. HISTORY: left hip pain COMPARISON: None. FINDINGS: BONES: No acute fracture. Sclerotic foci in the super acetabular region right iliac bone. These appear to have a benign appearance on the CT scan performed concurrent with this study. JOINTS: Mild and symmetrical degenerative change. SOFT TISSUES: Normal. OTHER FINDINGS: None. IMPRESSION: No acute findings related to/accounting for the clinical presentation.
--- NOTE | 2018-08-03 10:47 | RAD ---
Date of service: 08/02/2018 PROCEDURE: CHEST RADIOGRAPH, 1 VIEW HISTORY: chest discomfort COMPARISON: 04/30/2018. FINDINGS: LUNGS: Clear. PLEURA: No pneumothorax or pleural fluid seen. CARDIOVASCULAR: No aortic atherosclerotic calcification present. No radiographic findings to suggest acute or significant cardiovascular disease. Position/ configuration of pacemaker OSSEOUS STRUCTURES: No significant abnormalities. VISUALIZED UPPER ABDOMEN: Normal. OTHER FINDINGS: None. IMPRESSION: No active disease. No acute/significant interval changes.
--- NOTE | 2018-08-03 10:48 | RAD ---
Date of service: 08/02/2018 PROCEDURE: Radiographs of the left tibia and fibula. HISTORY: leg pain COMPARISON: None available. TECHNIQUE: Frontal and lateral views obtained. FINDINGS: BONES: No fracture or destructive lesion. JOINT SPACES: Unremarkable. OTHER FINDINGS: None. IMPRESSION: Unremarkable radiographs of the left tibia and fibula.
--- NOTE | 2018-08-03 10:48 | RAD ---
Date of service: 08/02/2018 PROCEDURE: Left femur HISTORY: left leg pain COMPARISON: Left tibia and fibula. August 03, 2018 TECHNIQUE: Standard protocol for this study/examination. FINDINGS: No significant/acute osseous, articular or soft tissue abnormalities. IMPRESSION: No acute findings related to/accounting for the clinical presentation.
--- NOTE | 2018-08-03 10:58 | CT ---
Date of service: 08/02/2018 PROCEDURE: CT Abdomen and Pelvis without intravenous contrast HISTORY: abdominal pain, n/v COMPARISON: None. TECHNIQUE: Without contrast.. Contrast dose: Radiation dose: Total exam DLP = 327.06 mGy-cm. This CT exam was performed using one or more of the following dose reduction techniques: Automated exposure control, adjustment of the mA and/or kV according to patient size, and/or use of iterative reconstruction technique. FINDINGS: LOWER THORAX: Unremarkable. LIVER: Unremarkable. No gross lesion or ductal dilatation. GALLBLADDER AND BILE DUCTS: Gallbladder removed PANCREAS: Unremarkable. No gross lesion or ductal dilatation. SPLEEN: Unremarkable. ADRENALS: Unremarkable. No mass. KIDNEYS AND URETERS: Unremarkable. No hydronephrosis. No solid mass. VASCULATURE: Unremarkable. No aortic aneurysm. No aortic atherosclerotic calcification or mural plaque present. BOWEL: Severe diverticulosis of the descending and sigmoid colon. There is moderate constipation APPENDIX: Unremarkable. Normal appendix. PERITONEUM: Unremarkable. No free fluid. No free air. LYMPH NODES: Unremarkable. No enlarged lymph nodes. BLADDER: Unremarkable. REPRODUCTIVE: Unremarkable. BONES: No acute fracture. OTHER FINDINGS: The report concurs with the preliminary [facility] report IMPRESSION: No acute intra-abdominal findings. Diverticulosis of the sigmoid and descending colon without evidence of cholecystitis
--- NOTE | 2018-08-03 13:17 | US ---
Date of service: 08/02/2018 HISTORY: abdominal pain, n/v, (+) murphys sign COMPARISON: None. TECHNIQUE: Sonographic evaluation of the right upper quadrant of the abdomen. FINDINGS: LIVER: Measures 11.9 cm in length. Hepatopedal blood flow. Fatty infiltration manifest ultrasonographically as increased echogenicity of the liver parenchyma. No mass. No intrahepatic bile duct dilatation. GALLBLADDER: Status post cholecystectomy. No abnormality is seen in the gallbladder fossa. COMMON BILE DUCT: Measures 3.7 mm. No stones. No dilatation. PANCREAS: Obscured by overlying bowel gas. Non diagnostic assessment of the pancreas. RIGHT KIDNEY: Measures 4.4 x 9.1 cm in length. Normal echogenicity. No calculus, mass, or hydronephrosis. Midpole cyst 1.1 x 1.4 cm. AORTA: No aneurysmal dilatation. IVC: Unremarkable. OTHER FINDINGS: None . IMPRESSION: No acute findings related to/accounting for the clinical presentation. Additional benign and/or incidental findings described above. Limitations of the current examination: Nondiagnostic study of the pancreas.
== END 2018-08-02 20:27 | disposition home or self-care (01) ==
LOC: ED 14:24
DX: K57.30 Diverticulosis of large intestine without perforation or abscess without bleeding (principal); M25.552 Pain in left hip; R10.9 Unspecified abdominal pain; R11.2 Nausea with vomiting, unspecified; M19.90 Unspecified osteoarthritis, unspecified site; I48.91 Unspecified atrial fibrillation; I13.0 Hypertensive heart and chronic kidney disease with heart failure and stage 1 through stage 4 chronic kidney disease, or unspecified chronic kidney disease; N18.9 Chronic kidney disease, unspecified; Z87.891 Personal history of nicotine dependence; Z86.718 Personal history of other venous thrombosis and embolism
CPT/HCPCS: 71045; 73502; 73551; 73590; 74176; 76705; 80053; 81001; 83690; 84484; 85025; 87086; 87181; 93005; 96374; 99283; J2405

== ENCOUNTER 2019-01-16 14:31 | Inpatient (IN) | payer MEDICARE, OTHER ==
--- NOTE | 2019-01-16 15:21 | ED PDOC ---
Arrival/HPI - General Time Seen by Provider: 01/16/19 14:37 Historian: Caregiver - History of Present Illness Narrative History of Present Illness (Text): 01/16/19 15:24 83 year old F with pmh of esophageal stricture, Afib, DVT, CKD, sleep apnea, CHF with PM, hypertension, osteoarthritis presents complaining emesis x3days, abdominal pain and general weakness. Patient is Frisian speaking. There is no active emesis. Patient denies any mechanical fall. Per loader engineer, patient has decreased PO intake due to emesis. Caregiver endorses normal bowel movements. Patient denies any fevers, chills, headache, dizziness, chest pain, shortness of breath, dyspnea on exertion, cough, nausea, diarrhea, back pain, neck pain, or any other complaint. PMD: Dr. Gaspar Time/Duration: < week Symptom Onset: Sudden Symptom Course: Unchanged Activities at Onset: Light Context: Home Past Medical History - Provider Review Nursing Documentation Reviewed: Yes - Infectious Disease Hx of Infectious Diseases: None - Cardiac Hx Cardiac Disorders: Yes Hx Atrial Fibrillation: Yes Hx Pacemaker: Yes - Pulmonary Hx Respiratory Disorders: No - Neurological Hx Neurological Disorder: Yes Hx Parkinson's Disease: Yes - HEENT Hx HEENT Disorder: No - Renal Hx Renal Disorder: No - Endocrine/Metabolic Hx Endocrine Disorders: Yes Hx Hyperthyroidism: Yes - Hematological/Oncological Hx Blood Disorders: No - Integumentary Hx Dermatological Disorder: No - Musculoskeletal/Rheumatological Hx Musculoskeletal Disorders: Yes - Gastrointestinal Hx Gastrointestinal Disorders: Yes - Genitourinary/Gynecological Hx Genitourinary Disorders: No - Psychiatric Hx Psychophysiologic Disorder: No Hx Substance Use: No - Surgical History Other/Comment: pacemaker. thyroid sx - Anesthesia Hx Anesthesia Reactions: No Family/Social History - Physician Review Nursing Documentation Reviewed: Yes Family/Social History: Unknown Family HX Smoking Status: Former Smoker Hx Alcohol Use: No Hx Substance Use: No Allergies/Home Meds Allergies/Adverse Reactions: Allergies peanut Allergy (Verified 01/16/19 15:24) ITCHING zolpidem [From Ambien] Allergy (Verified 01/16/19 15:24) DIZZINESS zolpidem tartrate [From Ambien] Adverse Reaction (Verified 01/16/19 15:24) HALUCINATIONS PT DAUGHTER STATED THIS DURING INTERVEIW FOR ENDO coffee Allergy (Uncoded 01/16/19 15:24) ITCHING lettuce Allergy (Uncoded 01/16/19 15:24) ITCHING Home Medications: Home Meds Medication Instructions Recorded Confirmed Loperamide HCl [Loperamide] 2 mg PO DAILY 06/06/16 08/02/18 Metoprolol Succinate XL [Toprol XL] 25 mg PO DAILY 06/06/16 08/02/18 Cholecalciferol (Vitamin D3) 2,000 units PO DAILY 11/15/16 08/02/18 [Vitamin D3] Pantoprazole [Protonix EC Tab] 40 mg PO DAILY 11/15/16 08/02/18 Levothyroxine [Synthroid] 75 mcg PO DAILY 12/19/17 08/02/18 Carbidopa/Levodopa 10 - 100 mg PO BID 04/30/18 08/02/18 [Carbidopa-Levodopa 10-100 Tab] Rivaroxaban [Xarelto] 20 mg PO DAILY 04/30/18 08/02/18 Review of Systems - Physician Review All systems were reviewed & negative as marked: Yes - Review of Systems Constitutional: absent: Fevers ENT: absent: Sore Throat, Rhinorrhea, Epistaxis Respiratory: absent: SOB, Cough, Wheezing Cardiovascular: Chest Pain. absent: Palpitations Gastrointestinal: Abdominal Pain. absent: Diarrhea, Nausea, Vomiting Genitourinary Female: absent: Dysuria Musculoskeletal: absent: Back Pain, Joint Swelling Skin: absent: Cellulitis Neurological: absent: Headache, Dizziness Physical Exam Vital Signs Reviewed: Yes Vital Signs Temp Pulse Resp BP Pulse Ox 01/16/19 14:46 97.9 F 66 18 142/84 99 Temperature: Afebrile Blood Pressure: Normal Pulse: Regular Respiratory Rate: Normal Appearance: Positive for: Well-Appearing, Non-Toxic, Comfortable Pain Distress: Mild Mental Status: Positive for: Alert and Oriented X 3 - Systems Exam Head: Present: Atraumatic, Normocephalic Pupils: Present: PERRL Extroacular Muscles: Present: EOMI Conjunctiva: Present: Normal Mouth: Present: Moist Mucous Membranes Neck: Present: Normal Range of Motion Respiratory/Chest: Present: Clear to Auscultation, Good Air Exchange. No: Respiratory Distress, Accessory Muscle Use Cardiovascular: Present: Regular Rate and Rhythm, Normal S1, S2. No: Murmurs Abdomen: Present: Tenderness (LLQ). No: Distention, Peritoneal Signs, Rebound, Guarding Back: Present: Normal Inspection Upper Extremity: Present: Normal Inspection. No: Cyanosis, Edema Lower Extremity: Present: Normal Inspection. No: Edema Neurological: Present: GCS=15, CN II-XII Intact, Speech Normal Skin: Present: Warm, Dry, Normal Color. No: Rashes Psychiatric: Present: Alert, Oriented x 3, Normal Insight, Normal Concentration Medical Decision Making ED Course and Treatment: 01/16/19 15:19 Impression: 83 year old F presents complaining emesis x3days, abdominal pain and general weakness. Patient denies any mechanical fall. Per loader engineer, patient has decreased PO intake due to emesis. Plan: -- Labs -- EKG -- CT Abdominal & Pelvis IV contrast -- UA -- Reassess and disposition Prior Visits: Notes and results from previous visits were reviewed. Patient was last seen in the emergency department on Progress Notes: 01/16/19 16:27 EKG Atrial pacemaker @ 62 BPM. T-wave inversions at anterior and lateral leads. EKG similar to EKG on 08/02/2018. 01/16/19 17:25 Patient had one episode of emesis at bedside. Will give Saline IV fluid and Zofran. 01/16/19 18:32 Chest X-ray No active disease. 01/16/19 19:20 Abdomen/ Pelvis CT Fluid-filled mildly dilated small bowel loops may represent nonspecific infectious/inflammatory enteritis. No evidence for bowel obstruction. Left colonic diverticulosis without CT evidence for acute diverticulitis. Right paraesophageal hital hernia and fluid-filled mildly dilated distal esophagus 01/16/19 19:20 Reassessed patient: explained to family about workup results. Treat for possible UTI with rocephin. Patient mentions new symptoms of "aching pain all over body". Still have LLQ pain. Will test for Flu Patient emesis when PO intake Dr. Gonzáles assessed patient at bedside, agree with plan and take patient under his care, will admit. Plans to treat for UTI, emesis and enteritis. Wants to consult Dr. Howard (infectious disease) and Dr. Castro (Gastroenterology) - Albertoibe Statement The provider has reviewed the documentation as recorded by the David Dunn All medical record entries made by the David were at my direction and personally dictated by me. I have reviewed the chart and agree that the record accurately reflects my personal performance of the history, physical exam, medical decision making, and the department course for this patient. I have also personally directed, reviewed, and agree with the discharge instructions and disposition. Disposition/Present on Arrival - Present on Arrival History of DVT/PE: No History of Uncontrolled Diabetes: No Urinary Catheter: No History Surgical Site Infection Following: None - Disposition
[2019-01-16 16:08] LABS: BASO # 0.01 K/mm3 (0.0-2.0); BASO % 0.1 % (0.0-3.0); EOS # 0.1 (0.0-0.7); LYMPH # 0.9 (1.2-3.4); LYMPH % 13.1 % (22.0-35.0); MEAN CELL VOLUME 96.1 fl (80.0-105.0); MEAN CORPUSCULAR HEMOGLOBIN 30.9 pg (25.0-35.0); MEAN CORPUSCULAR HGB CONC 32.2 g/dl (31.0-37.0); MEAN PLATELET VOLUME 10.3 fl (7.0-11.0); MONO # 0.8 (0.1-0.6); MONO % 11.2 % (1.0-6.0); RBC 3.88 10^6/uL (3.5-6.1); RED CELL DISTRIBUTION WIDTH 13.2 % (11.5-14.5); WHITE BLOOD COUNT 6.9 10^3/uL (4.5-11.0)
[2019-01-16 16:36] LABS: ALB/GLOB RATIO 1.3 (1.1-1.8); ALBUMIN 3.6 g/dL (3.0-4.8); ALT/SGPT 81 U/L (7-56); AMYLASE 83 U/L (35-125); AST/SGOT 122 U/L (14-36); BLOOD UREA NITROGEN 20 mg/dL (7-21); CALCIUM 7.6 mg/dL (8.4-10.5); GFR NON-AFRICAN AMERICAN 36; LIPASE 67 U/L (23-300)
[2019-01-16 16:53] LABS: PH,URINE 7.5 (4.7-8.0); URINE BILIRUBIN NEGATIVE (NEGATIVE); URINE BLOOD NEGATIVE (NEGATIVE); URINE GLUCOSE (UA) NEGATIVE (NEGATIVE); URINE LEUKOCYTE ESTERASE TRACE Leu/uL (NEGATIVE); URINE PROTEIN NEGATIVE mg/dL (<30 mg/dL); URINE UROBILINOGEN 0.2 E.U./dL (<1 E.U./dL)
[2019-01-16 16:54] LABS: URINE APPEARANCE SL CLOUDY (CLEAR); URINE COLOR YELLOW (YELLOW)
[2019-01-16 17:05] LABS: TROPONIN I < 0.01 ng/mL
[2019-01-16 17:07] LABS: URINE BACTERIA MOD /hpf
--- NOTE | 2019-01-16 17:20 | RAD ---
Date of service: 01/16/2019 HISTORY: Vomiting. No reference to chest symptoms provided in relevant information. COMPARISON: No prior. FINDINGS: LUNGS: No active pulmonary disease. Low lung volumes demonstrated. PLEURA: No significant pleural effusion identified, no pneumothorax apparent. CARDIOVASCULAR: No atherosclerotic calcification present No radiographic findings to suggest acute or significant cardiovascular disease. Position/ configuration of pacemaker device: Satisfactory. OSSEOUS STRUCTURES: No significant abnormalities. VISUALIZED UPPER ABDOMEN: Normal. OTHER FINDINGS: None. IMPRESSION: No active disease.
[2019-01-16] MEDS ORDERED: Sodium Chloride 0.9% 1,000 ML IV SCH (17:30)
--- NOTE | 2019-01-16 18:33 | CT ---
Date of service: 01/16/2019 PROCEDURE: CT Abdomen and Pelvis without intravenous contrast HISTORY: Abdominal pain and vomiting COMPARISON: 08/02/2018. TECHNIQUE: CT scan of the abdomen and pelvis was performed without administration of intravenous contrast. Oral contrast was not administered. Coronal and sagittal reformatted images were obtained. Radiation dose: Total exam DLP = 479.07 mGy-cm. This CT exam was performed using one or more of the following dose reduction techniques: Automated exposure control, adjustment of the mA and/or kV according to patient size, and/or use of iterative reconstruction technique. FINDINGS: LOWER THORAX: There is dependent atelectasis in the lung bases. Moderate cardiomegaly. LIVER: Normal in size. No gross lesion or ductal dilatation. GALLBLADDER AND BILE DUCTS: Surgically absent. PANCREAS: Normal in size. No gross lesion or ductal dilatation. SPLEEN: Normal in size. ADRENALS: Normal in size. No discrete nodule. KIDNEYS AND URETERS: Both kidneys are normal in size. No hydronephrosis. There is a 1.6 cm simple cyst in the right interpolar region. There is a punctate nonobstructing stone in the left upper pole. VASCULATURE: Normal in caliber. No aortic aneurysm. Minimal aortic atherosclerotic calcifications present. BOWEL: Evaluation of the bowel is limited in the absence of oral contrast. There are fluid-filled mildly dilated small bowel loops. There is extensive left colonic diverticulosis without CT evidence for acute diverticulitis. APPENDIX: Normal appendix. PERITONEUM: No free fluid. No free air. LYMPH NODES: No enlarged lymph nodes. BLADDER: Well distended and normal in appearance. REPRODUCTIVE: The uterus is normal in size. BONES: No acute fracture. There is diffuse bone demineralization and multilevel degenerative changes in the spine. OTHER FINDINGS: There is a right paraesophageal hiatal hernia and fluid-filled mildly dilated distal esophagus. IMPRESSION: 1. Fluid-filled mildly dilated small bowel loops may represent nonspecific infectious/inflammatory enteritis. No evidence for bowel obstruction. 2. Left colonic diverticulosis without CT evidence for acute diverticulitis. 3. Right paraesophageal hiatal hernia and fluid-filled mildly dilated distal esophagus.
[2019-01-16] MEDS ORDERED: cefTRIAXone 1 GM/100 ML BAG IVPB STA (19:30)
[2019-01-16] MEDS: Sodium Chloride 0.9% 1,000 ML IV SCH (19:43)
--- NOTE | 2019-01-16 20:16 | CARD ---
APPROVED REPORT Date of service: 01/16/2019 EKG Measurement Heart [id number] [id number] <Conclusion> Electronic atrial pacemaker
[2019-01-16 21:18] VITALS: BMI 25.4
--- NOTE | 2019-01-17 03:39 | HP ---
DATE OF EXAM: 01/16/2019 HISTORY OF PRESENT ILLNESS: She is an 83-year-old white female who presents to the emergency room with 3 days of throwing up abdominal pain, generalized weakness, and lots of emesis. She cannot really take much intake, some abdominal pains. She has a past medical history of esophageal stricture, atrial fibrillation, DVT, CKD, sleep apnea, CHF, hypertension, osteoarthritis, Parkinson's disease, little while now. She has atrial fibrillation. She has a pacemaker, hypothyroidism, GERD, thyroid surgery, and pacemaker insertion. FAMILY HISTORY: Unknown family history. SOCIAL HISTORY: Former smoker. No alcohol. No drugs. ALLERGIES: SHE IS ALLERGIC TO PEANUTS, AMBIEN, COFFEE, AND LETTUCE. MEDICATIONS: She is on loperamide, Toprol, vitamin D3, Protonix, Synthroid, Sinemet, and Xarelto. REVIEW OF SYSTEMS: She has no fevers. She has no sore throat. She has no shortness of breath, cough or wheezing. There is a little bit of chest pain. No palpitations. There is abdominal pain. There is nausea or vomiting. No diarrhea. There is some discomfort when she urinates. No back pain. No cellulitis. No redness. No headache or dizziness. PHYSICAL EXAMINATION: VITAL SIGNS: 97.9, temperature, 66 pulse, 18 respiratory rate, 142/84 blood pressure, and 99% O2 sat. GENERAL: She is uncomfortable. She is still toxic, throwing up abdominal pain, [id number] distress. Alert and oriented x3. HEENT: Head is atraumatic and normocephalic. Extraocular muscles are intact. Pupils are equal and reactive to light and accommodation. Throat is dry. NECK: Supple. No JVD. Thyroid is midline with . LUNGS: Decreased breath sounds bilaterally. Poor inspiration, but no wheezes, no rhonchi, and no rales. HEART: Regular rate. Normal S1 and S2. ABDOMEN: Left lower quadrant tenderness. Decreased bowel sounds. No guarding. No rebound. No CVA tenderness. EXTREMITIES: There is tenderness left leg, no edema. She has bad arthritis. NEUROLOGIC: GCS is 15. Cranial nerves II through XII grossly intact. Speech is normal. Alert and oriented x3. SKIN: Warm and dry. No apparent rashes that I could tell. LABORATORY DATA: She had multiple tests done. She had a CAT scan of abdomen and pelvis, which showed fluid-filled mildly dilated small bowel loops that represent infectious, inflammatory enteritis, left colonic diverticulosis. She has a hiatal hernia and dilated distal esophagus. She has a chest x-ray, which showed no active disease. Urine with moderate bacteria. Sodium 133, potassium 4.5, BUN 20, and creatinine 1.4. She has got IV fluids for little bit of renal insufficiency, 142 sugar, and calcium 7.6. AST is 122, ALT is 81, and alk phos 88. Lactate dehydrogenase 889. Total creatine kinase is 40. Troponin I is less than 0.01, total protein 6.4, albumin is 3.6, and globulin 2.7. White count 6.9, hemoglobin 12, hematocrit 37.3, and platelets of 153. ASSESSMENT AND PLAN: She will be on Zofran, IV fluids. She will be n.p.o., IV Protonix, IV Rocephin for the urinary tract infection. We will check her labs tomorrow, ordered physical therapy. Hopefully, she will improve. We will check her labs tomorrow. Zachary Gonzáles DO MTDD
[2019-01-17] MEDS: metroNIDAZOLE IV 500 mg/100 ml 500 MG/100 ML BAG IVPB SCH ×3 (06:01→21:21)
--- NOTE | 2019-01-17 06:28 | CP.PCM.PN ---
Subjective - Date & Time of Evaluation Date of Evaluation: 01/17/19 Time of Evaluation: 06:27 - Subjective Subjective: tbd insomnia benadryl Objective - Vital Signs/Intake and Output Vital Signs (last 24 hours): Temp Pulse Resp BP Pulse Ox 98.0 F 67 16 147/85 99 01/16/19 20:18 01/16/19 20:18 01/16/19 21:04 01/16/19 20:18 01/16/19 20:18 - Medications Medications: Current Medications Carbidopa/Levodopa (Sinemet 10/100) 1 tab PO BID [facility] Sodium Chloride (Sodium Chloride 0.9%) 1,000 mls @ 80 mls/hr IV .[id number] AILYN Last Admin: 01/16/19 19:43 Dose: 80 mls/hr Metronidazole (Flagyl) 500 mg in 100 mls @ 100 mls/hr IVPB Q8 [facility]; Protocol Stop: 01/25/19 06:01 Last Admin: 01/17/19 06:01 Dose: 100 mls/hr Ceftriaxone Sodium (Rocephin 1 Gram Ivpb) 1 gm in 100 mls @ 100 mls/hr IVPB DAILY [facility]; Protocol Stop: 01/26/19 10:01 Ketorolac Tromethamine (Toradol) 15 mg IVP Q6H PRN PRN Reason: Pain, moderate (4-7) Levothyroxine Sodium (Synthroid) 75 mcg PO DAILY [facility] Metoprolol Succinate (Toprol Xl) 25 mg PO DAILY [facility] Ondansetron HCl (Zofran Inj) 4 mg IVP Q4H PRN PRN Reason: Nausea/Vomiting Pantoprazole Sodium (Protonix Inj) 40 mg IVP DAILY [facility] Rivaroxaban (Xarelto) 20 mg PO DAILY [facility]; Protocol - Labs Labs: 01/16/19 16:00 01/16/19 16:00
[2019-01-17 06:53] LABS: HEMOGLOBIN 12.1 g/dL (12.0-16.0); MEAN CELL VOLUME 96.4 fl (80.0-105.0); MEAN CORPUSCULAR HEMOGLOBIN 31.3 pg (25.0-35.0); MEAN CORPUSCULAR HGB CONC 32.5 g/dl (31.0-37.0); RBC 3.86 10^6/uL (3.5-6.1); RED CELL DISTRIBUTION WIDTH 12.9 % (11.5-14.5); WHITE BLOOD COUNT 7.7 10^3/uL (4.5-11.0)
[2019-01-17 07:35] LABS: ALB/GLOB RATIO 1.2 (1.1-1.8); ALBUMIN 3.4 g/dL (3.0-4.8); CALCIUM 7.3 mg/dL (8.4-10.5)
[2019-01-17] MEDS: Levothyroxine 75 MCG TAB PO SCH (09:04)
[2019-01-17] MEDS: cefTRIAXone 1 gm 1 GM/100 ML BAG IVPB SCH (09:05)
[2019-01-17] MEDS: Sodium Chloride 0.9% 1,000 ML IV SCH ×2 (09:12→20:00)
[2019-01-17] MEDS: Metoprolol Succinate 25 mg XL Tab PO SCH (09:13)
--- NOTE | 2019-01-17 10:16 | US ---
Date of service: 01/17/2019 HISTORY: abdominal pain, elevated LFTs COMPARISON: 08/02/2018. TECHNIQUE: Sonographic evaluation of the abdomen. FINDINGS: LIVER: Measures 13.0 cm. Patent portal and hepatic venous systems. Portal venous flow: Hepatopetal. echogenicity of the liver parenchyma. No mass. No intrahepatic bile duct dilatation. GALLBLADDER: Status post cholecystectomy. No abnormality is seen in the gallbladder fossa. COMMON BILE DUCT: Measures 9.2 mm. No stones. No dilatation. PANCREAS: Unremarkable as visualized. No mass. No ductal dilatation. RIGHT KIDNEY: Measures 4.1 x 7.0cm. Normal echogenicity. No calculus, mass or hydronephrosis simple cysts midpole 1.4 x 1.6 cm. LEFT KIDNEY: Measures 3.9 x 8.4cm. Normal echogenicity. No calculus, mass, or hydronephrosis. SPLEEN: Normal in size and contour. No mass. AORTA: No aneurysmal dilatation. IVC: Unremarkable. OTHER FINDINGS: None. IMPRESSION: No acute findings related to/ accounting for the clinical presentation. No significant interval change compared to the prior examination(s).
--- NOTE | 2019-01-17 10:34 | CP.PCM.CON ---
<Mary Emanuel - Last Filed: 01/17/19 15:37> History of Present Illness - History of Present Illness History of Present Illness: Gastroenterology Fellow/PGY6 Consult Note 83 year old female with PMH of esophageal stenosis 2/2 Valeria fundoplication s/p dilation 05/2016, systolic CHF, pacemaker, Afib on Xarelto, HTN, CKD, Hypothyroidism, and Parkinson's presenting with vomiting. Patient notes chronic intermittent abdominal discomfort and loss of appetite. Notes new onset episode of bilious vomiting after eating cheese pizza from outside restaurant. Associated left upper abdomen discomfort. Denies hematemesis, diarrhea, constipation, melena, hematochezia, fever, chills, sweats, sick contacts, recent antibiotics, or unintentional weight loss. Prior EGD 05/2016 showed a esophageal stenosis at 46cm from incisors-traversed prior to CRE (15) dilation with Valeria fundoplication. Endorses prior colonoscopy 2018 to be normal. Family History- denies stomach cancer, colon cancer Social History- former tobacco; denies alcohol or illicit drug use Surgical History-thyroid resection, pacemaker, cholecystectomy Review of Systems - Review of Systems Review of Systems: 12-point review of systems negative except for as above Past Patient History - Infectious Disease Hx of Infectious Diseases: None - Past Medical History & Family History Past Medical History?: Yes - Past Social History Smoking Status: Former Smoker - CARDIAC Hx Cardiac Disorders: Yes Hx Cardia Arrhythmia: Yes (afib) Hx Hypertension: Yes Hx Pacemaker: Yes (atrial pace) - PULMONARY Hx Respiratory Disorders: Yes Hx Bronchitis: Yes Hx Sleep Apnea: Yes (cpap) - NEUROLOGICAL Hx Neurological Disorder: Yes Hx Parkinson's Disease: Yes Hx Transient Ischemic Attacks (TIA): Yes - HEENT Hx HEENT Problems: Yes Hx Cataracts: Yes - RENAL Hx Chronic Kidney Disease: No - ENDOCRINE/METABOLIC Hx Endocrine Disorders: Yes Hx Hyperthyroidism: Yes (thyroidectomy) - HEMATOLOGICAL/ONCOLOGICAL Hx Blood Disorders: Yes Hx AIDS: No Hx Anemia: Yes - INTEGUMENTARY Hx Dermatological Problems: No - MUSCULOSKELETAL/RHEUMATOLOGICAL Hx Falls: No - GASTROINTESTINAL Hx Gastrointestinal Disorders: Yes Hx Gall Bladder Disease: Yes (cholecystectomy) Hx Gastroesophageal Reflux: Yes (gastritis, esophageal hernia operation) - GENITOURINARY/GYNECOLOGICAL Hx Genitourinary Disorders: No - PSYCHIATRIC Hx Substance Use: No - SURGICAL HISTORY Hx Surgeries: Yes (hernia repair) Hx Cholecystectomy: Yes Other/Comment: pacemaker - ANESTHESIA Hx Anesthesia Reactions: No Meds Allergies/Adverse Reactions: Allergies Allergy/AdvReac Type Severity Reaction Status Date / Time peanut Allergy ITCHING Verified 01/16/19 15:24 zolpidem [From Ambien] Allergy DIZZINESS Verified 01/16/19 15:24 zolpidem tartrate AdvReac HALUCINATIO Verified 01/16/19 15:24 [From Ambien] NS coffee Allergy ITCHING Uncoded 01/16/19 15:24 lettuce Allergy ITCHING Uncoded 01/16/19 15:24 - Medications Medications: Current Medications Carbidopa/Levodopa (Sinemet 10/100) 1 tab PO BID [facility] Last Admin: 01/17/19 09:12 Dose: 1 tab Sodium Chloride (Sodium Chloride 0.9%) 1,000 mls @ 80 mls/hr IV .[id number] [facility] Last Admin: 01/17/19 09:12 Dose: 80 mls/hr Metronidazole (Flagyl) 500 mg in 100 mls @ 100 mls/hr IVPB Q8 [facility]; Protocol Stop: 01/25/19 06:01 Last Admin: 01/17/19 06:01 Dose: 100 mls/hr Ceftriaxone Sodium (Rocephin 1 Gram Ivpb) 1 gm in 100 mls @ 100 mls/hr IVPB DAILY [facility]; Protocol Stop: 01/26/19 10:01 Last Admin: 01/17/19 09:05 Dose: 100 mls/hr Ketorolac Tromethamine (Toradol) 15 mg IVP Q6H PRN PRN Reason: Pain, moderate (4-7) Last Admin: 01/17/19 09:13 Dose: 15 mg Levothyroxine Sodium (Synthroid) 75 mcg PO DAILY [facility] Last Admin: 01/17/19 09:04 Dose: 75 mcg Metoprolol Succinate (Toprol Xl) 25 mg PO DAILY [facility] Last Admin: 01/17/19 09:13 Dose: 25 mg Ondansetron HCl (Zofran Inj) 4 mg IVP Q4H PRN PRN Reason: Nausea/Vomiting Pantoprazole Sodium (Protonix Inj) 40 mg IVP DAILY [facility] Last Admin: 01/17/19 09:04 Dose: 40 mg Rivaroxaban (Xarelto) 20 mg PO DAILY [facility]; Protocol Last Admin: 01/17/19 09:13 Dose: 20 mg Physical Exam - Constitutional Appears: Non-toxic, No Acute Distress - Head Exam Head Exam: ATRAUMATIC, NORMOCEPHALIC - Eye Exam Eye Exam: EOMI, PERRL Pupil Exam: PERRL. absent: Miosis, Mydriatic - ENT Exam ENT Exam: Mucous Membranes Moist, Normal Oropharynx - Neck Exam Neck exam: Positive for: Full Rom, Normal Inspection - Respiratory Exam Respiratory Exam: Clear to Auscultation Bilateral. absent: Rales, Rhonchi, Wheezes - Cardiovascular Exam Cardiovascular Exam: RRR, +S1, +S2. absent: Gallop, Rubs - GI/Abdominal Exam GI & Abdominal Exam: Normal Bowel Sounds, Soft, Tenderness. absent: Distended, Firm, Guarding, Organomegaly, Rebound, Rigid Additional comments: LUQ discomfort to palpation - Extremities Exam Extremities exam: Positive for: normal inspection - Neurological Exam Neurological exam: Alert - Psychiatric Exam Psychiatric exam: Normal Affect, Normal Mood - Skin Skin Exam: Dry, Intact, Normal Color, Warm Results - Vital Signs Recent Vital Signs: Last Vital Signs Temp 97.2 F L 01/17/19 08:21 Pulse 65 01/17/19 09:13 Resp 16 01/17/19 08:21 BP 158/82 H 01/17/19 09:13 Pulse Ox 96 01/17/19 08:21 - Labs Result Diagrams: 01/17/19 06:20 01/17/19 06:20 Labs: Laboratory Results - last 24 hr 01/16/19 01/16/19 01/16/19 16:00 16:00 16:20 WBC 6.9 RBC 3.88 Hgb 12.0 Hct 37.3 MCV 96.1 MCH 30.9 MCHC 32.2 RDW 13.2 Plt Count 153 MPV 10.3 Neut % (Auto) 74.6 H Lymph % (Auto) 13.1 L [place] % (Auto) 11.2 H Eos % (Auto) 1.0 L Baso % (Auto) 0.1 Lymph # (Auto) 0.9 L [place] # (Auto) 0.8 H Eos # (Auto) 0.1 Baso # (Auto) 0.01 Absolute Neuts (auto) 5.17 Sodium 133 Potassium 4.5 Chloride 98 Carbon Dioxide 26 Anion Gap 14 BUN 20 Creatinine 1.4 H Est GFR ( Amer) 43 Est GFR (Non-Af Amer) 36 Random Glucose 142 H Calcium 7.6 L Total Bilirubin 0.5 AST 122 H D ALT 81 H Alkaline Phosphatase 88 Lactate Dehydrogenase 889 H Total Creatine Kinase 40 Troponin I < 0.01 Total Protein 6.4 Albumin 3.6 Globulin 2.7 Albumin/Globulin Ratio 1.3 Amylase 83 Lipase 67 Urine Color Yellow Urine Appearance Sl cloudy Urine pH 7.5 Ur Specific Randolph 1.015 Urine Protein Negative Urine Glucose (UA) Negative Urine Ketones Negative Urine Blood Negative Urine Nitrate Negative Urine Bilirubin Negative Urine Urobilinogen 0.2 Ur Leukocyte Esterase Trace H Urine RBC None Urine WBC 5 - 10 H Ur Epithelial Cells 4 - 5 Urine Bacteria Mod Influenza Typ A,B (EIA) 01/16/19 01/17/19 01/17/19 19:35 06:20 06:20 WBC 7.7 RBC 3.86 Hgb 12.1 Hct 37.2 MCV 96.4 MCH 31.3 MCHC 32.5 RDW 12.9 Plt Count 158 MPV 10.0 Neut % (Auto) Lymph % (Auto) Carolina % (Auto) Eos % (Auto) Baso % (Auto) Lymph # (Auto) [place] # (Auto) Eos # (Auto) Baso # (Auto) Absolute Neuts (auto) Sodium 134 Potassium 4.6 Chloride 100 Carbon Dioxide 27 Anion Gap 11 BUN 17 Creatinine 1.2 Est GFR ( Amer) 52 Est GFR (Non-Af Amer) 43 Random Glucose 77 Calcium 7.3 L Total Bilirubin 0.4 AST 103 H ALT 139 H Alkaline Phosphatase 82 Lactate Dehydrogenase Total Creatine Kinase Troponin I Total Protein 6.2 Albumin 3.4 Globulin 2.8 Albumin/Globulin Ratio 1.2 Amylase Lipase Urine Color Urine Appearance Urine pH Ur Specific Randolph Urine Protein Urine Glucose (UA) Urine Ketones Urine Blood Urine Nitrate Urine Bilirubin Urine Urobilinogen Ur Leukocyte Esterase Urine RBC Urine WBC Ur Epithelial Cells Urine Bacteria Influenza Typ A,B (EIA) Negative for flu a/b Assessment & Plan - Assessment and Plan (Free Text) Assessment: 83 year old female with PMH of esophageal stenosis 2/2 Valeria fundoplication s/p dilation 05/2016, systolic CHF, pacemaker, Afib on Xarelto, HTN, CKD, Hypothyroidism, and Parkinson's presenting with vomiting. CT A/P showing fliud filled small bowel loops without obstruction. Prior EGD 05/2016 showed a esophageal stenosis at 46cm from incisors-traversed prior to CRE (12-15) dilation with Valeria fundoplication. Endorses prior colonoscopy 2018 to be normal. Plan: -likely viral gastroenteritis -vomiting resolved -abdominal pain improving -obtained GI series- narrowing of GE junction with esophageal dilation -history of Valerai fundoplication, contrast flows into stomach and duodenum -no alarm features, stable weight on record review -tolerated liquid diet for breakfast and lunch, advanced to diabetic diet -elevated transaminases-Ultrasound showed hepatic steatosis, prior cholecystec anu -ordered autoimmune serologies with chronic elevated LFTs -negative Hepatitis B and C, Hepatitis A borderline- recommend repeat Hepatitis A IgM/IgG in two weeks with repeat LFTs -would benefit from elective follow up of Valeria fundoplication with prior dilation after resolution of acute gastroenteritis <Gregory Castro - Last Filed: 01/17/19 19:02> Meds - Medications Medications: Current Medications Carbidopa/Levodopa (Sinemet 10/100) 1 tab PO BID [facility] Last Admin: 01/17/19 17:09 Dose: 1 tab Sodium Chloride (Sodium Chloride 0.9%) 1,000 mls @ 80 mls/hr IV .[id number] [facility] Last Admin: 01/17/19 09:12 Dose: 80 mls/hr Metronidazole (Flagyl) 500 mg in 100 mls @ 100 mls/hr IVPB Q8 [facility]; Protocol Stop: 01/25/19 06:01 Last Admin: 01/17/19 13:14 Dose: 100 mls/hr Ceftriaxone Sodium (Rocephin 1 Gram Ivpb) 1 gm in 100 mls @ 100 mls/hr IVPB DAILY [facility]; Protocol Stop: 01/26/19 10:01 Last Admin: 01/17/19 09:05 Dose: 100 mls/hr Ketorolac Tromethamine (Toradol) 15 mg IVP Q6H PRN PRN Reason: Pain, moderate (4-7) Last Admin: 01/17/19 09:13 Dose: 15 mg Levothyroxine Sodium (Synthroid) 75 mcg PO DAILY [facility] Last Admin: 01/17/19 09:04 Dose: 75 mcg Metoprolol Succinate (Toprol Xl) 25 mg PO DAILY [facility] Last Admin: 01/17/19 09:13 Dose: 25 mg Ondansetron HCl (Zofran Inj) 4 mg IVP Q4H PRN PRN Reason: Nausea/Vomiting Last Admin: 01/17/19 18:46 Dose: 4 mg Pantoprazole Sodium (Protonix Inj) 40 mg IVP DAILY [facility] Last Admin: 01/17/19 09:04 Dose: 40 mg Rivaroxaban (Xarelto) 20 mg PO DAILY [facility]; Protocol Last Admin: 01/17/19 09:13 Dose: 20 mg Results - Vital Signs Recent Vital Signs: Last Vital Signs Temp 98.8 F 01/17/19 16:50 Pulse 60 01/17/19 16:50 Resp 20 01/17/19 16:50 BP 158/77 H 01/17/19 16:50 Pulse Ox 94 L 01/17/19 16:50 - Labs Result Diagrams: 01/17/19 06:20 01/17/19 06:20 Labs: Laboratory Results - last 24 hr 01/16/19 01/17/19 01/17/19 19:35 06:20 06:20 WBC 7.7 RBC 3.86 Hgb 12.1 Hct 37.2 MCV 96.4 MCH 31.3 MCHC 32.5 RDW 12.9 Plt Count 158 MPV 10.0 PT INR Sodium 134 Potassium 4.6 Chloride 100 Carbon Dioxide 27 Anion Gap 11 BUN 17 Creatinine 1.2 Est GFR ( Amer) 52 Est GFR (Non-Af Amer) 43 Random Glucose 77 Hemoglobin A1c Calcium 7.3 L Iron TIBC % Saturation Total Bilirubin 0.4 AST 103 H ALT 139 H Alkaline Phosphatase 82 Total Protein 6.2 Albumin 3.4 Globulin 2.8 Albumin/Globulin Ratio 1.2 Hepatitis A IgM Ab Hep Bs Antigen Hep B Core IgM Ab Hepatitis C Antibody Influenza Typ A,B (EIA) Negative for flu a/b 01/17/19 01/17/19 01/17/19 06:20 06:20 12:05 WBC RBC Hgb Hct MCV MCH MCHC RDW Plt Count MPV PT 22.6 H INR 2.00 Sodium Potassium Chloride Carbon Dioxide Anion Gap BUN Creatinine Est GFR ( Amer) Est GFR (Non-Af Amer) Random Glucose Hemoglobin A1c 6.5 Calcium Iron TIBC % Saturation Total Bilirubin AST ALT Alkaline Phosphatase Total Protein Albumin Globulin Albumin/Globulin Ratio Hepatitis A IgM Ab Borderline Hep Bs Antigen Negative Hep B Core IgM Ab Negative Hepatitis C Antibody Negative Influenza Typ A,B (EIA) 01/17/19 16:00 WBC RBC Hgb Hct MCV MCH MCHC RDW Plt Count MPV PT INR Sodium Potassium Chloride Carbon Dioxide Anion Gap BUN Creatinine Est GFR ( Amer) Est GFR (Non-Af Amer) Random Glucose Hemoglobin A1c Calcium Iron 65 TIBC 296 % Saturation 22 Total Bilirubin AST ALT Alkaline Phosphatase Total Protein Albumin Globulin Albumin/Globulin Ratio Hepatitis A IgM Ab Hep Bs Antigen Hep B Core IgM Ab Hepatitis C Antibody Influenza Typ A,B (EIA) Attending/Attestation - Attestation I have fully participated in the care of the patient.: Yes I have reviewed all pertinent clinical information: Yes Notes (Text): 01/17/19 18:59 History of Valeria fundoplication with luminal stenosis s/p dilation on EGD in 2016 CHF Atrial fibrillation on xarelto CKD Hypothyroidism Transaminitis Abdominal pain, vomiting - likely gastroenteritis XR esophagus reviewed by me showing no obstructive pathology - Diet as tolerated - Continue to monitor LFTs, awaiting autoimmune panel results - Patient would likely benefit from repeat evaluation of fundoplication which can be set up electively as outpatient - Will continue to monitor patient clinical course
[2019-01-17] MEDS ORDERED: Barium Sulfate for Susp 96% w/w 176g Bottle PR ONE (11:10)
[2019-01-17] MEDS ORDERED: Barium Sulfate for Susp 98% w/w 340g Bottle ONE (11:10)
--- NOTE | 2019-01-17 11:45 | RAD ---
Date of service: 01/17/2019 HISTORY: dysphagia w/ vomiting,history esophageal stenosis COMPARISON: None. TECHNIQUE: Single contrast upper GI series was performed. FINDINGS: Patient tolerated procedure well. ESOPHAGUS: There is mild dilatation of the esophagus. There is narrowing of the GE junction but no evidence of obstruction. Contrast flows into the stomach and duodenum. STOMACH: Gastric mucosa appear preserved. No evidence of ulceration or mass lesion. DUODENUM: Duodenal bulb appear preserved without evidence of ulceration or mass lesion HIATAL HERNIA: Moderate size hiatal hernia GASTROESOPHAGEAL REFLUX: Not demonstrated. OTHER FINDINGS: None. IMPRESSION: Narrowing of the esophagus at the GE junction with mild to moderate dilatation of the esophagus.
[2019-01-17 11:51] LABS: HEPATITIS B SURFACE AG Negative (NEGATIVE)
--- NOTE | 2019-01-17 11:55 | PN ---
DATE: 01/17/2019 SUBJECTIVE: I saw her in her bed this morning. Actually, I saw her last night in the emergency room. She has an enteritis with a UTI picture with nausea, vomiting with renal insufficiency. She is presently doing much better this morning. She still nauseous, but improved. She is on Flagyl, Protonix, Rocephin, Sinemet, IV fluids, Synthroid, Toprol, Toradol, Xarelto, and Zofran. PHYSICAL EXAMINATION VITAL SIGNS: Temperature 97.2 , 65 pulse, 158/82 blood pressure, 16 respiratory rate, 96% O2 sat on room air. HEENT: Head: Atraumatic, normocephalic. HEART: Regular rate. LUNGS: Clear to auscultation with decreased breath sounds. ABDOMEN: Soft, today less distended. There are some bowel sounds. No guarding, no rebound, but less tender. EXTREMITIES: No edema. LABORATORY DATA: She has a 7.7 white count, 12.1 hemoglobin, 37.2 hematocrit with 158 platelets. Sodium 134, potassium 4.6, BUN 17, creatinine 1.2, better. GFR is 43, better. Sugar is 77, calcium is 7.3, total bili is 0.4. AST is 103, ALT is 139, alk phos 82. Troponin I is less than 0.01, total protein is 6.2. Urine with moderate bacteria. She is being seen by while she is being consulted to see is GI and Infectious Disease. I do think she is improving with her IV fluids and Zofran. She is now put on the liquid diet by GI she does, and we will watch her closely. I will also order physical therapy and out of bed to chair. Zachary Gonzáles DO MTDD
[2019-01-17 11:57] LABS: HEPATITIS B CORE AB NEGATIVE (NEGATIVE)
[2019-01-17 12:09] LABS: HEPATITIS C ANTIBODY NEGATIVE (NEGATIVE)
[2019-01-17 12:23] LABS: PROTHROMBIN TIME 22.6 SECONDS (9.4-12.5)
[2019-01-17 12:54] LABS: HEPATITIS A IGM BORDERLINE (NEGATIVE)
--- NOTE | 2019-01-17 13:29 | CP.PCM.PCO ---
Physician Communication Note - Physician Communication Note Physician Communication Note: Gastroenteritis and UTI continue IV antibiotics as per ID
[2019-01-17 16:36] LABS: IRON 65 ug/dL (45-180)
[2019-01-17 16:46] LABS: % IRON SATURATION 22 % (20-55); TOTAL IRON BINDING CAPACITY 296 ug/dL (265-497)
[2019-01-17 16:51] VITALS: RESP 20; TEMP 98.8; O2SAT 94
--- NOTE | 2019-01-18 01:24 | CON ---
DATE: 01/17/2019 The patient is in bed, seen earlier today. CHIEF COMPLAINT: Weakness times several days. HISTORY OF PRESENT ILLNESS: This is an 83-year-old female with esophageal stricture, atrial fibrillation, DVT, chronic kidney disease, sleep apnea, congestive heart failure, hypertension, Pseudomonas urinary tract infection on 08/02/2018, osteoarthritis, depression, with a pacemaker. She has had and hernia repair in the past, who was admitted with diagnosis of enteritis and vomiting. The patient was seen in the emergency room and complained of diffuse abdominal pain and vomiting times 3 days. Not quite sure about dysuria or frequency times, there is still frequency and dysuria. No fever or chills. REVIEW OF SYSTEMS: A 12-point review of systems is performed. PAST MEDICAL HISTORY: Significant for esophageal stricture, atrial fibrillation, DVT, chronic kidney disease, sleep apnea, congestive heart failure, hypertension, osteoarthritis, depression, and Pseudomonas urinary tract infection. PAST SURGICAL HISTORY: Significant for pacemaker, , and hernia repair. ALLERGIES: THE PATIENT HAS ALLERGY TO PEANUTS, ZOLPIDEM, TARTRATE, COFFEE. PHYSICAL EXAMINATION: GENERAL: The patient is in bed. VITAL SIGNS: Temperature of 97, blood pressure is 150/80, respiratory rate of 20, heart rate of 65. HEENT: Unremarkable. NECK: Supple. LUNGS: Have decreased breath sounds. HEART: Normal S1 and S2. ABDOMEN: Soft, nontender. No organomegaly, no rebound, no guarding. There is no CVA tenderness. LABORATORY EXAMINATION: Reveals a white count of 6.9, hemoglobin of 12. Chemistries reveal a BUN of 20, creatinine of 1.4. Urinalysis shows trace leukocyte esterase, wbc's 5-10, moderate bacteria, cloudy urine. Microbiology reveals gram-negative rods in the urine. Blood cultures are pending. CAT scan of the abdomen and pelvis is noted. Gallbladder is surgically absent based on the CAT scan and a nonobstructing stone in the kidney. ASSESSMENT AND PLAN: An 83-year-old female with enteritis with gram-negative leah urinary tract infection. We will treat the patient with Rocephin and Flagyl. We will follow closely with you. Jake Howard MD
[2019-01-18] MEDS: metroNIDAZOLE IV 500 mg/100 ml 500 MG/100 ML BAG IVPB SCH (05:11)
[2019-01-18] MEDS: Sodium Chloride 0.9% 1,000 ML IV SCH ×2 (05:12→09:20)
[2019-01-18 06:47] LABS: HEMOGLOBIN 10.9 g/dL (12.0-16.0); MEAN CELL VOLUME 95.2 fl (80.0-105.0); MEAN CORPUSCULAR HEMOGLOBIN 31.1 pg (25.0-35.0); MEAN CORPUSCULAR HGB CONC 32.6 g/dl (31.0-37.0); RBC 3.51 10^6/uL (3.5-6.1); WHITE BLOOD COUNT 5.9 10^3/uL (4.5-11.0)
[2019-01-18 07:39] LABS: ALB/GLOB RATIO 1.2 (1.1-1.8); ALBUMIN 2.9 g/dL (3.0-4.8); ALT/SGPT 78 U/L (7-56); AST/SGOT 61 U/L (14-36); BLOOD UREA NITROGEN 15 mg/dL (7-21); CALCIUM 6.9 mg/dL (8.4-10.5); GFR NON-AFRICAN AMERICAN 53
[2019-01-18] MEDS: cefTRIAXone 1 gm 1 GM/100 ML BAG IVPB SCH (09:19)
[2019-01-18] MEDS: Metoprolol Succinate 25 mg XL Tab PO SCH (09:21)
[2019-01-18] MEDS: Levothyroxine 75 MCG TAB PO SCH (09:21)
[2019-01-18 09:22] VITALS: BP 138/73; PULSE 61
[2019-01-18] MEDS ORDERED: Calcium Gluconate in NS 1 GM/50 ML BAG IV ONE (09:41)
--- NOTE | 2019-01-18 09:57 | CP.PCM.PN ---
<Mary Emanuel - Last Filed: 01/18/19 09:52> Subjective - Date & Time of Evaluation Date of Evaluation: 01/18/19 Time of Evaluation: 09:53 - Subjective Subjective: Gastroenterology Fellow/PGY6 Progress Note Patient denies nausea or vomiting since this morning. Two episodes of food vomitus after trial of solid food for dinner yesterday. No bowel movement yesterday. A 12-point review of systems negative except for as above. Objective - Vital Signs/Intake and Output Vital Signs (last 24 hours): Temp Pulse Resp BP Pulse Ox 98.8 F 61 20 138/73 94 L 01/17/19 16:50 01/18/19 09:21 01/17/19 16:50 01/18/19 09:21 01/17/19 16:50 - Medications Medications: Current Medications Carbidopa/Levodopa (Sinemet 10) 1 tab PO BID [facility] Last Admin: 01/18/19 09:20 Dose: 1 tab Sodium Chloride (Sodium Chloride 0.9%) 1,000 mls @ 80 mls/hr IV .[id number] [facility] Last Admin: 01/18/19 09:20 Dose: 80 mls/hr Metronidazole (Flagyl) 500 mg in 100 mls @ 100 mls/hr IVPB Q8 [facility]; Protocol Stop: 01/25/19 06:01 Last Admin: 01/18/19 05:11 Dose: 100 mls/hr Ceftriaxone Sodium (Rocephin 1 Gram Ivpb) 1 gm in 100 mls @ 100 mls/hr IVPB DAILY [facility]; Protocol Stop: 01/26/19 10:01 Last Admin: 01/18/19 09:19 Dose: 100 mls/hr Calcium Gluconate (Calcium Gluconate 1g/50ml Ns) 1 gm in 50 mls @ 50 mls/hr IV ONCE ONE Stop: 01/18/19 10:40 Ketorolac Tromethamine (Toradol) 15 mg IVP Q6H PRN PRN Reason: Pain, moderate (4-7) Last Admin: 01/17/19 09:13 Dose: 15 mg Levothyroxine Sodium (Synthroid) 75 mcg PO DAILY [facility] Last Admin: 01/18/19 09:21 Dose: 75 mcg Metoprolol Succinate (Toprol Xl) 25 mg PO DAILY [facility] Last Admin: 01/18/19 09:21 Dose: 25 mg Ondansetron HCl (Zofran Inj) 4 mg IVP Q4H PRN PRN Reason: Nausea/Vomiting Last Admin: 01/17/19 18:46 Dose: 4 mg Pantoprazole Sodium (Protonix Inj) 40 mg IVP DAILY [facility] Last Admin: 01/18/19 09:19 Dose: 40 mg Rivaroxaban (Xarelto) 20 mg PO DAILY [facility]; Protocol Last Admin: 01/18/19 09:22 Dose: 20 mg - Labs Labs: 01/18/19 06:00 01/18/19 06:00 PT 22.6 SECONDS (9.4-12.5) H 01/17/19 12:05 INR 2.00 01/17/19 12:05 - Constitutional Appears: Non-toxic, No Acute Distress - Head Exam Head Exam: ATRAUMATIC, NORMOCEPHALIC - Eye Exam Eye Exam: EOMI, PERRL. absent: Scleral icterus Pupil Exam: PERRL. absent: Miosis, Mydriatic - ENT Exam ENT Exam: Mucous Membranes Moist, Normal Oropharynx - Neck Exam Neck Exam: Full ROM, Normal Inspection - Respiratory Exam Respiratory Exam: Clear to Ausculation Bilateral. absent: Rales, Rhonchi, Wheezes - Cardiovascular Exam Cardiovascular Exam: RRR, +S1, +S2. absent: Gallop, Rubs - GI/Abdominal Exam GI & Abdominal Exam: Soft, Normal Bowel Sounds. absent: Distended, Firm, Guarding, Rigid, Tenderness, Organomegaly, Rebound - Extremities Exam Extremities Exam: Normal Inspection - Neurological Exam Neurological Exam: Alert, Awake - Psychiatric Exam Psychiatric exam: Normal Affect, Normal Mood - Skin Skin Exam: Dry, Intact, Normal Color, Warm Assessment and Plan - Assessment and Plan (Free Text) Assessment: 83 year old female with PMH of esophageal stenosis 2/2 Valeria fundoplication s/p dilation 05/2016, systolic CHF, pacemaker, Afib on Xarelto, HTN, CKD, Hypothyroidism, and Parkinson's presenting with vomiting. CT A/P showing fluid filled small bowel loops without obstruction. Prior EGD 05/2016 showed a esophageal stenosis at 46cm from incisors-traversed prior to CRE (12-15) dilation with Valeria fundoplication. Endorses prior colonoscopy 2018 to be normal. Plan: -likely viral gastroenteritis -GI series- contrast flows freely, no obstruction -full liquid diet for breakfast -advance to small frequent diabetic low fat soft diet as tolerated -elevated transaminases-Ultrasound showed hepatic steatosis, prior cholecystectomy -ordered autoimmune serologies with chronic elevated LFTs -negative Hepatitis B and C, Hepatitis A borderline- recommend repeat Hepatitis A IgM/IgG in two weeks with repeat LFTs -would benefit from elective follow up of Valeria fundoplication with prior dilation after resolution of acute gastroenteritis <Gregory Castro - Last Filed: 01/18/19 14:12> Objective - Vital Signs/Intake and Output Vital Signs (last 24 hours): Temp Pulse Resp BP Pulse Ox 98.8 F 61 20 138/73 94 L 01/17/19 16:50 01/18/19 09:21 01/17/19 16:50 01/18/19 09:21 01/17/19 16:50 - Medications Medications: Current Medications Carbidopa/Levodopa (Sinemet 10/100) 1 tab PO BID [facility] Last Admin: 01/18/19 09:20 Dose: 1 tab Sodium Chloride (Sodium Chloride 0.9%) 1,000 mls @ 80 mls/hr IV .[id number] [facility] Last Admin: 01/18/19 09:20 Dose: 80 mls/hr Metronidazole (Flagyl) 500 mg in 100 mls @ 100 mls/hr IVPB Q8 [facility]; Protocol Stop: 01/25/19 06:01 Last Admin: 01/18/19 05:11 Dose: 100 mls/hr Ceftriaxone Sodium (Rocephin 1 Gram Ivpb) 1 gm in 100 mls @ 100 mls/hr IVPB DAILY [facility]; Protocol Stop: 01/26/19 10:01 Last Admin: 01/18/19 09:19 Dose: 100 mls/hr Ketorolac Tromethamine (Toradol) 15 mg IVP Q6H PRN PRN Reason: Pain, moderate (4-7) Last Admin: 01/17/19 09:13 Dose: 15 mg Levothyroxine Sodium (Synthroid) 75 mcg PO DAILY [facility] Last Admin: 01/18/19 09:21 Dose: 75 mcg Metoprolol Succinate (Toprol Xl) 25 mg PO DAILY [facility] Last Admin: 01/18/19 09:21 Dose: 25 mg Ondansetron HCl (Zofran Inj) 4 mg IVP Q4H PRN PRN Reason: Nausea/Vomiting Last Admin: 01/17/19 18:46 Dose: 4 mg Pantoprazole Sodium (Protonix Inj) 40 mg IVP DAILY [facility] Last Admin: 01/18/19 09:19 Dose: 40 mg Rivaroxaban (Xarelto) 20 mg PO DAILY [facility]; Protocol Last Admin: 01/18/19 09:22 Dose: 20 mg - Labs Labs: 01/18/19 06:00 01/18/19 06:00 PT 22.6 SECONDS (9.4-12.5) H 01/17/19 12:05 INR 2.00 01/17/19 12:05 Attending/Attestation - Attestation I have personally seen and examined this patient.: Yes I have fully participated in the care of the patient.: Yes I have reviewed all pertinent clinical information, including history, physical exam and plan: Yes Notes (Text): 01/18/19 14:09 I have seen and examined patient with GI fellow. No acute events overnight, she had one episode of emesis yesterday following attempted consumption of solid food. She otherwise denies abdominal pain, nausea, vomiting, fever/chills. Tolerating PO liquids without difficulty. History of valeria fundoplication with previous GEJ stenosis requiring dilation in 2016 Nausea, vomiting - gastroenteritis CHF Atrial fibrillation on xarelto HTN CKD Hypothyroidism Transaminitis - Advance diet to puree consistency as tolerated - Anti-emetic therapy PRN - Continue to monitor LFTs, awaiting autoimmune panel results - If patient tolerating PO diet, can likely be discharged home with subsequent outpatient follow up with her primary GI physician. She would benefit from elective outpatient EGD for additional evaluation.
--- NOTE | 2019-01-18 12:15 | PN ---
DATE: 01/18/2019 SUBJECTIVE: She is resting comfortably in bed this morning. She only threw up once yesterday. We changed her diet around, hoping that this might make a difference with the throwing up. She is currently on Flagyl IV, Protonix IV, Rocephin IV, Sinemet, IV fluids, Synthroid, Toprol, Toradol, Xarelto, Zofran. PHYSICAL EXAMINATION: VITAL SIGNS: She has a 98.8 temperature, 60 pulse, 138/70 blood pressure, 20 respiratory rate, 94% O2 saturations. HEENT: Head is atraumatic and normocephalic. HEART: Regular rate. LUNGS: Decreased breath sounds. ABDOMEN: Soft. Positive bowel sounds but faint, little bit distended. No guarding. No rebound. EXTREMITIES: No edema. LABORATORY DATA: She has 133 sodium, potassium 4, BUN 15, creatinine 1, GFR 63, sugar 68, calcium is low at 6.9 and I will replace, AST 61, ALT 70, alk phos 75, total protein 5.4, 5.9 white count, 10.9 hemoglobin, 32.4 hematocrit, 137 platelets. Micro showed E. coli in the urine and she has enteritis on the CAT scan, some Flagyl and Rocephin. Hopefully, in the next 24 to 48 hours, she will have to be discharged. We will check her labs tomorrow. Get physical therapy and out of bed to chair. Hopefully, she will improve changing her diet. Zachary Gonzáles DO
--- NOTE | 2019-01-18 22:14 | PN ---
DATE: 01/18/2019 SUBJECTIVE: The patient is seen in bed, in no acute distress. No fevers were seen earlier this morning. She did state that she was having dysuria or frequency. No fevers. She states she is overall much improved. OBJECTIVE: VITAL SIGNS: Temperature is 98, blood pressure is 158/77, respiratory rate of 20, and heart rate of 60. HEENT: Unremarkable. NECK: Supple. LUNGS: Have decreased breath sounds. HEART: Normal S1 and S2. ABDOMEN: Soft and nontender. LABORATORY DATA: Reveals a white count of 5.9, hemoglobin of 10, and platelets of 137. BUN of 15 and creatinine of 1. Urinalysis is noted and serology is negative. Microbiology reveals E. coli in the urine is relatively sensitive organism. ASSESSMENT AND PLAN: This is an 83-year-old female who was seen earlier this morning in [facility], bed 2 with history of esophageal stricture, atrial fibrillation, deep venous thrombosis, chronic kidney disease, sleep apnea, congestive heart failure, hypertension, and Pseudomonas urinary tract infection who was admitted with nausea and vomiting and urinary symptoms with Escherichia coli, urinary tract infection and also with enteritis, may switch to p.o. cefpodoxime 200 mg p.o. b.i.d. to complete 7-10 days of antibiotics. Case discussed with PMD. We will follow the patient as outpatient and this patient has esophageal stenosis, systolic congestive heart failure, pacemaker, atrial fibrillation, kidney disease, hypertension, hypothyroidism, and Parkinson's disease. Jake Howard MD
== END 2019-01-18 15:15 | disposition home or self-care (01) | DRG 392 ==
LOC: ED 14:31 → ERH 19:17 → 3RSO 20:52
PROVIDERS: ADMIT Family Medicine; ATTEND Family Medicine
DX: K52.9 Noninfective gastroenteritis and colitis, unspecified (principal); N39.0 Urinary tract infection, site not specified; I13.0 Hypertensive heart and chronic kidney disease with heart failure and stage 1 through stage 4 chronic kidney disease, or unspecified chronic kidney disease; I50.20 Unspecified systolic (congestive) heart failure; I48.91 Unspecified atrial fibrillation; G20 Parkinson's disease; K21.9 Gastro-esophageal reflux disease without esophagitis; K22.2 Esophageal obstruction; E03.9 Hypothyroidism, unspecified; F32.9 Major depressive disorder, single episode, unspecified; M19.90 Unspecified osteoarthritis, unspecified site; N18.9 Chronic kidney disease, unspecified; G47.30 Sleep apnea, unspecified; G47.00 Insomnia, unspecified; Z79.01 Long term (current) use of anticoagulants; Z87.891 Personal history of nicotine dependence; Z86.73 Personal history of transient ischemic attack (TIA), and cerebral infarction without residual deficits; Z95.0 Presence of cardiac pacemaker